=== PATIENT | female | born 1965 | race Caucasian/White ===

== ENCOUNTER → 2022-04-22 | Outpatient (CLI) | payer OTHER ==
--- NOTE | 2022-04-23 10:33 | MR ---
EXAMINATION TYPE: MR angio head wo con DATE OF EXAM: 04/22/2022 6:29 PM CLINICAL INDICATION:Female, 57 years old with history of R51.9,G89.29,Z82.49,R93.89; COMPARISON: Same day MRI brain Technical: Technical: 3-D [id number] Axial with MIP reconstruction was created on a separate work station. IV Contrast: None Findings: Motion artifact limits evaluation. Vertebral arteries: Dominant right vertebral artery. The left vertebral artery cervical portion is no t definitively visualized. The artery appears to reconstitute within the intracranial portion. Basilar artery: The basilar artery is intact. The basilar artery bifurcation is normal. Internal Carotid arteries: The cervical, petrous, cavernous and supraclinoid segments are normal. AMARI: Patent with no evidence of aneurysm. ACOM: Present without evidence of aneurysm. MCA: Patent with no evidence of aneurysm. CIRCULATION SALES REPRESENTATIVE: Patent with no evidence of aneurysm. PCOM: Hypoplastic bilaterally. IMPRESSION: 1. No evidence of aneurysm. 2. Motion artifact with poor visualization of the left vertebral artery in the cervical portion. It appears to reconstituted within the intracranial portion. This may be secondary to a diminutive nondo minant left vertebral artery versus occlusion. Consider CTA neck for further evaluation for patency of the left vertebral artery.
--- NOTE | 2022-04-23 11:48 | MR ---
EXAMINATION TYPE: MR brain wo con DATE OF EXAM: 04/22/2022 6:44 PM COMPARISON: MR angiography same day. CLINICAL INDICATION:Female, 57 years old with history of R51.9,G89.29,Z82.49,R93.89; TECHNIQUE: Multi planar, multi sequence imaging was performed through the brain including: T1, T2, In version recovery, Diffusion weighted imaging, and gradient echo imaging. No gadolinium was given. FINDINGS: The elizabeth-white junctions, ventricular system, and cisterns appear unremarkable. Scattered foci and c onfluent areas of of high T2 signal intensity are seen within the periventricular white matter. Midli ne structures show no abnormality. Diffusion-weighted imaging shows no evidence of restricted diffusi on. The susceptibility weighted images reveal areas of ground small areas of blooming artifact within the left basal ganglia right temporal lobe, left posterior frontal lobe and within the occipital lob e on the right which is gyriform shaped and appears along the cortex. The bone marrow signal is within normal limits. The paranasal sinuses and globes are unremarkable. IMPRESSION: 1. No evidence of intracranial mass or acute/subacute infarct. 2. Extensive nonspecific white matter changes, likely secondary to small vessel ischemic disease. 3. Low signal within the right occipital lobe along the cortex could represent calcification/minerali zation from prior injury. Correlate with CT brain. 4. Scattered microhemorrhages as described above.
== END | disposition home or self-care (01) ==
LOC: RADMRIMAIN 17:29
PROVIDERS: ATTEND Family Medicine
DX: R51.9 Headache, unspecified (principal); G89.29 Other chronic pain; R93.89 Abnormal findings on diagnostic imaging of other specified body structures; Z82.49 Family history of ischemic heart disease and other diseases of the circulatory system
CPT/HCPCS: 70544; 70551

== ENCOUNTER → 2022-04-28 | Outpatient (CLI) | payer OTHER ==
--- NOTE | 2022-04-29 08:15 | CT ---
EXAMINATION TYPE: CT chest wo con DATE OF EXAM: 04/28/2022 COMPARISON: No prior chest studies at this location. HISTORY: abnormal cxr CT DLP: 417.7 mGycm, Automated exposure control for dose reduction was used. CONTRAST: Performed injected with 0 mL of Isovue 300. TECHNIQUE: Axial images were obtained at 5 mm thick sections. Reconstructed images are reviewed on [employer] computer in the coronal plane. FINDINGS: Portion of the thyroid visualized is normal. There may be some mild emphysematous changes lateral anterior right apex. Some additional increased d ensity within the lung juarez and the posterior dependent mid lungs. Example images series 4 image 29 series 4 image 32 Scattered small lymph nodes are present. The ascending aorta diameter at the level of the main pulmo nary artery is 3.5 cm. The main pulmonary artery diameter at the bifurcation is 3.0 cm. Coronary art zee calcification is present. Limited CT sections are obtained through the upper abdomen. Abdomen is essentially unremarkable. IMPRESSIONS: 1. Scattered parenchymal changes could be related to emphysematous change or infection. Recommend fol low-up chest x-ray 3 months. If there is interval change, repeat CT could be performed.
== END | disposition home or self-care (01) ==
LOC: RADCTMAIN 14:55
PROVIDERS: ATTEND Family Medicine
DX: J98.4 Other disorders of lung (principal); R93.89 Abnormal findings on diagnostic imaging of other specified body structures; Z82.49 Family history of ischemic heart disease and other diseases of the circulatory system
CPT/HCPCS: 71250

== ENCOUNTER → 2022-06-12 | Outpatient (CLI) | payer OTHER ==
--- NOTE | 2022-06-12 15:50 | CT ---
EXAMINATION TYPE: CT brain w con DATE OF EXAM: 06/12/2022 COMPARISON: MRI brain April 22, 2022 HISTORY: abnormal MRI results and Migraines for years. CT DLP: 1162.80 mGycm Automated exposure control for dose reduction was used. CONTRAST: CT scan of the head is performed with IV Contrast, patient injected with 80 mL of Isovue 370. FINDINGS: There is no abnormal enhancing mass or midline shift identified. Ventricles and sulci within normal l imits in size for patient's age. Severe low-attenuation in the deep and periventricular white matter is redemonstrated correlating with recent MRI. No abnormal enhancing masses are seen. Empty sella mor phology redemonstrated on sagittal images. There is partial opacification and mucosal thickening in t he posterior left ethmoid sinuses on current study. The globes are intact bilaterally. IMPRESSION: Severe nonspecific white matter changes redemonstrated. No abnormal enhancement or enhanc ing masses are noted. New posterior left ethmoid sinus disease seen. Correlate clinically..
--- NOTE | 2022-06-12 16:13 | CT ---
EXAMINATION TYPE: CT angio neck DATE OF EXAM: 06/12/2022 HISTORY: abnormal MRI results and Migraines for years. Abnormal findings on other imaging. COMPARISON: None CT DLP: 866.0 mGycm. Automated Exposure Control for Dose Reduction was Utilized. TECHNIQUE: CTA scan of the head and neck is performed without and with IV Contrast, patient injected with 80 mL of Isovue 370, axial images are obtained, coronal and sagittal reformatted images are rev iewed. 3D reconstructed images are created on an independent workstation and reviewed. FINDINGS: Carotid/Vascular Structures: Mild to moderate peripheral plaque in the arch extends into 3 great bran ch vessels without significant stenosis . More prominent plaque in the left subclavian artery with li near hypodensities suggesting chronic focal dissection axial images 33 through 35. No significant rocael nosis in common carotid arteries bilaterally. Moderate mixed plaque in the right carotid bulb extends into the proximal internal carotid artery without incident stenosis. There is [id number] mixed plaque in the proximal internal carotid artery without significant stenosis. Patent external carotid arteries without significant stenosis. Moderate calcified plaque in the distal internal carotid lupe grzegorz. Other: Tiny thin-walled cysts and mild scarring in the periphery of the lungs greater in the right up per lung is seen. Mild to moderate disc space narrowing C5-C6 and C6-C7 levels is present. IMPRESSION: No significant stenosis in the common or internal carotid arteries bilaterally. 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 Advise vascular surgical evaluation. NASCET criteria was used in interpretation of this exam?
== END | disposition home or self-care (01) ==
LOC: RADCTMAIN 14:56
PROVIDERS: ATTEND Family Medicine
DX: J34.89 Other specified disorders of nose and nasal sinuses (principal); G93.89 Other specified disorders of brain
CPT/HCPCS: 70460; 70498; Q9967

== ENCOUNTER 2022-08-16 05:45 | Inpatient (IN) | payer OTHER ==
[2022-08-16] MEDS ORDERED: ASPIRIN 81 MG PO STA (06:02)
[2022-08-16] MEDS ORDERED: HEPARIN SODIUM 1,000 UN/ML (10ML VL) IV ONE (06:02)
[2022-08-16] MEDS ORDERED: NALOXONE 0.4 MG/ML 1 ML VIAL IV PRN (06:05)
--- NOTE | 2022-08-16 06:05 | ED ---
General Adult HPI - General Chief complaint: Chest Pain Stated complaint: chest pain Time Seen by Provider: 08/16/22 05:56 Source: patient, family Mode of arrival: wheelchair Limitations: no limitations - History of Present Illness Initial comments: Dictation was produced using [employer] dictation software. please excuse any grammatical, word or spelling errors. Chief Complaint: 57-year-old female presents emergency department for chest pain History of Present Illness: 57-year-old male presents emergency department for chest pain. Patient states it is pressure-like sensation. Daughter at the bedside states that she's been having chest pressure for the last 2-3 days. Over the last 12 hours states that her chest pains were getting worse associated with diaphoresis and nausea. Pain radiates down her left upper extremity. Patient denies any cardiac history. She does have a history of diabetes, hypertension and dyslipidemia. The ROS documented in this emergency department record has been reviewed and confirmed by me. Those systems with pertinent positive or negative responses have been documented in the HPI. All other systems are other negative and/or noncontributory. PHYSICAL EXAM: General Impression: Alert and oriented x3, acute distress secondary to pain HEENT: Normocephalic atraumatic, extra-ocular movements intact, pupils equal and reactive to light bilaterally, mucous membranes moist, no JVD Cardiovascular: Heart regular rate and rhythm Chest: Able to complete full sentences, no retractions, no tachypnea, mild lung wheezing Abdomen: abdomen soft, non-tender, non-distended, no organomegaly Musculoskeletal: Pulses present and equal in all extremities, no peripheral edema Motor: no focal deficits noted Neurological: CN II-XII grossly intact, no focal motor or sensory deficits noted Skin: Intact with no visualized rashes Psych: Normal affect and mood ED course:-year-old feel presents emergency department with chest pain concerning for acute coronary syndrome. Vital signs upon arrival shows blood pressure to 80/110, rest of vital signs within acceptable limits. EKG shows ST segment elevation UT with ST elevations in inferior leads and reciprocal changes in high lateral and anterior precordial leads. Code STEMI paged. Nursing notes and chart review was performed EKG interpreted by me: Ventricular rate S1, sinus rhythm,. 197, QRS 15, QTc 440. No MD prolongation, no QTC prolongation. ST elevations in inferior leads with reciprocal changes in the high lateral leads and anterior precordial leads Was pt. sent in by a medical professional or institution ([facility], STANDARDS ANALYST, urgent care, hospital, or half-way...) When possible be specific @ -No Did you speak to anyone other than the patient for history (EMS, parent, family, police, friend...)? What history was obtained from this source @ -Family member at the bedside Did you review nursing and triage notes (agree or disagree)? Why? @ -I reviewed and agree with nursing and triage notes Were old charts reviewed (outside hosp., previous admission, EMS record, old EKG, old radiological studies, urgent care reports/EKG's, half-way records)? Report findings @ -No old charts were reviewed Differential Diagnosis (chest pain, altered mental status, abdominal pain women, abdominal pain men, vaginal bleeding, musculoskeletal, weakness, fever, dyspnea, syncope, headache, dizziness, GI bleed, back pain, seizure, CVA, palpatations, mental health)? @ -Differential chest pain EKG interpreted by me (3pts min.). @ -As above X-rays interpreted by me (1pt min.). @ -No acute processes CT interpreted by me (1pt min.). @ -None done U/S interpreted by me (1pt. min.). @ -None done What testing was considered but not performed or refused? (CT, X-rays, U/S, labs)? Why? @ -None What meds were considered but not given or refused? Why? @ -None Did you discuss the management of the patient with other professionals (professionals i.e. [facility], STANDARDS ANALYST, lab, RT, psych nurse, social service assistant, clay shop supervisor, teacher, wildlife conservation officer, case briefer)? Give summary @ -No Was smoking cessation discussed for >3mins.? @ -No Was critical care preformed (if so, how long)? @ -Yes, 33 minutes Were there social determinants of health that impacted care today? How? (Homelessness, low income, unemployed, alcoholism, drug addiction, transportation, low edu. Level, literacy, decrease access to med. care, shelter, rehab)? @ -No Was there de-escalation of care discussed even if they declined (Discuss DNR or withdrawal of care, Hospice)? DNR status @ -No What co-morbidities impacted this encounter? (DM, HTN, Smoking, COPD, CAD, Cancer, CVA, ARF, Chemo, Hep., AIDS, mental health diagnosis, sleep apnea, morbid obesity)? @ -None Was patient admitted / discharged? Hospital course, mention meds given and route, prescriptions, significant lab abnormalities, going to OR and other per tinent info. @ -57-year-old female presents emergency department with chest pain concerning for acute coronary syndrome. EKG shows ST segment elevation UT. Code STEMI was paged. Case discussed with inside sales associate. Patient will be disposition emergently to the medical laboratory technologist for stat cardiac catheterization Undiagnosed new problem with uncertain prognosis? @ -No Drug Therapy requiring intensive monitoring for toxicity (Heparin, Nitro, Insulin, Cardizem)? @ -No Were any procedures done? @ -No Diagnosis/symptom? Acute, or Chronic, or Acute on Chronic? Uncomplicated (without systemic symptoms) or Complicated (systemic symptoms)? @ -1. Acute ST segment elevation UT Side effects of treatment? @ -No Exacerbation, Progression, or Severe Exacerbation? @ -No Poses a threat to life or bodily function? How? (Chest pain, USA, UT, pneumonia, PE, COPD, DKA, ARF, appy, cholecystitis, CVA, Diverticulitis, Homicidal, Suicidal, threat to staff... and all critical care pts) @ -yes - Related Data Allergies Allergy/AdvReac Type Severity Reaction Status Date / Time aspirin AdvReac Nausea & Verified 08/16/22 05:46 Vomiting Review of Systems ROS Statement: Those systems with pertinent positive or pertinent negative responses have been documented in the HPI. ROS Other: All systems not noted in ROS Statement are negative. Past Medical History Past Medical History: Hyperlipidemia, Hypertension History of Any Multi-Drug Resistant Organisms: None Reported Past Surgical History: Section, Hysterectomy Past Psychological History: No Psychological Hx Reported Smoking Status: Current every day smoker Past Alcohol Use History: Occasional Past Drug Use History: Marijuana General Exam Limitations: no limitations Course Vital Signs 08/16/22 05:47 Temperature 98 F Pulse Rate 61 Respiratory 18 Rate Blood Pressure 208/110 O2 Sat by Pulse 98 Oximetry Disposition Clinical Impression: ST elevation myocardial infarction (STEMI) Disposition: ADMITTED IP TO THIS HOSP Condition: Critical Referrals: Juanis Cardenas MD [Primary Care Provider] - 1-2 days Decision Time: 06:10
[2022-08-16] MEDS ORDERED: NITROGLYCERIN SL TABS 0.4 MG TAB SUBLINGUAL STA (06:14)
[2022-08-16] MEDS ORDERED: SODIUM CHLORIDE 0.9% 1,000 ML IV SCH (06:15)
[2022-08-16] MEDS ORDERED: HEPARIN SOD,PORK IN 0.45% NACL 25,000 UNIT in 0.45% NACL 1 250ML.BAG IV SCH (06:15)
[2022-08-16] MEDS ORDERED: VERAPAMIL 2.5 MG/ML 2 ML AMP ONE (06:31)
[2022-08-16] MEDS ORDERED: HEPARIN SODIUM 1,000 UN/ML (10ML VL) ONE (06:31)
[2022-08-16] MEDS ORDERED: fentaNYL (PF) 50 MCG/ML 2 ML AMP ONE (06:38)
--- NOTE | 2022-08-16 06:40 | P.CRDCN ---
History of Present Illness History of present illness: HISTORY OF PRESENTING ILLNESS Patient is a pleasant 57-year-old female with history of hypertension, hyperlipidemia, tobacco abuse, family history of CAD who presents for chest pain. Patient has been having off-and-on chest pain or last 3-4 days. Chest pain associated with diaphoresis and nausea. Has some pain down her left arm. Has a history of borderline diabetes however taken off medications after she lost significant weight. She does have family history of father f rom massive VT. She does not have inferior ST elevations and oil laboratory analyst was activated. REVIEW OF SYSTEMS At the time of my exam: CONSTITUTIONAL: Denies fever or chills. CARDIOVASCULAR: +chest pain, no shortness of breath, orthopnea, PND or palpitations. RESPIRATORY: Denies cough. GASTROINTESTINAL: Denies abdominal pain, diarrhea, constipation, nausea or vomiting. MUSCULOSKELETAL: Denies myalgias. NEUROLOGIC: Denies numbness, tingling or weakness. ENDOCRINE: Denies fatigue, weight change, polydipsia or polyurina. GENITOURINARY: Denies burning, hematuria or urgency with micturation. HEMATOLOGIC: Denies history of anemia or bleeding. PHYSICAL EXAMINATION Vital signs reviewed. CONSTITUTIONAL: No apparent distress. HEENT: Head is normocephalic. Pupils are equal, round. Sclerae anicteric. Mucous membranes of the mouth are moist. No JVD. No carotid bruit. CHEST EXAMINATION: Lungs are clear to auscultation. No chest wall tenderness is noted on palpation or with deep breathing. HEART EXAMINATION: Regular rate and rhythm. S1, S2 heard. No murmurs, gallops or rub. ABDOMEN: Soft, nontender. Positive bowel sounds. EXTREMITIES: 2+ peripheral pulses, no lower extremity edema and no calf te nderness. NEUROLOGIC EXAMINATION: Patient is awake, alert and oriented x3. ASSESSMENT 1. Inferior STEMI 2. Hypertension, elevated on presentation 3. Hyperlipidemia 4. Tobacco abuse 5. Family history of CAD PLAN Patient with ST elevation and symptoms over last few days. Discussed recommendations for heart catheterization and PCI and patient agreeable. Check 2-D echo. Aspirin, heparin. Further recommendations to follow. Past Medical History Past Medical History: Hyperlipidemia, Hypertension History of Any Multi-Drug Resistant Organisms: None Reported Past Surgical History: Section, Hysterectomy Past Psychological History: No Psychological Hx Reported Smoking Status: Current every day smoker Past Alcohol Use History: Occasional Past Drug Use History: Marijuana Medications and Allergies Allergies Allergy/AdvReac Type Severity Reaction Status Date / Time aspirin AdvReac Nausea & Verified 08/16/22 05:46 Vomiting Physical Exam Vitals: Vital Signs Temp Pulse Resp BP Pulse Ox 08/16/22 06:23 56 L 15 217/99 100 08/16/22 06:15 55 L 16 234/94 98 08/16/22 05:47 98 F 61 18 208/110 98 Intake and Output 08/15/22 08/15/22 08/16/22 14:59 22:59 06:59 Other: Weight 74.843 kg Results Current Medications Generic Name Dose Route Start Last Admin Trade Name Freq PRN Reason Stop Dose Admin Heparin Sodium/Sodium Chloride 250 mls @ 8.981 mls/hr 08/16/22 06:15 25,000 unit/ Sodium Chloride IV .Q24H ZACK Protocol 12 UNITS/KG/HR Sodium Chloride 1,000 mls @ 110 mls/hr 08/16/22 06:15 08/16/22 06:14 Saline 0.9% IV 110 mls/hr .Q9H6M ZACK Administration Naloxone HCl 0.2 mg 08/16/22 06:05 Naloxone 0.4 Mg/Ml 1 Ml Vial IV Q2M PRN Opioid Reversal Intake and Output 08/15/22 08/15/22 08/16/22 14:59 22:59 06:59 Other: Weight 74.843 kg Patient Weight 08/16/22 06:59 Weight 74.843 kg
[2022-08-16 06:43] LABS: Basophils # (A) 0.1 k/uL (0-0.2); Basophils % (A) 1 %; Eosinophils # (A) 0.2 k/uL (0-0.7); Eosinophils % (A) 1 %; HCT 47.4 % (34.0-46.0); HGB 16.4 gm/dL (11.4-16.0); Lymphocytes # (A) 2.6 k/uL (1.0-4.8); Lymphocytes % (A) 18 %; MCH 31.9 pg (25.0-35.0); MCHC 34.7 g/dL (31.0-37.0); MCV 91.9 fL (80.0-100.0); Mean Platelet Volume 8.8; Monocytes # (A) 0.6 k/uL (0-1.0); Monocytes % (A) 4 %; Neutrophils # (A) 10.5 k/uL (1.3-7.7); Neutrophils % (A) 74 %; Platelet Count 219 k/uL (150-450); RBC 5.15 m/uL (3.80-5.40); RDW 12.9 % (11.5-15.5); WBC 14.3 k/uL (3.8-10.6)
[2022-08-16] MEDS ORDERED: fentaNYL (PF) 50 MCG/ML 2 ML AMP IVP ONE ×2 (06:43)
[2022-08-16] MEDS ORDERED: MIDAZOLAM 2 MG/2 ML VIAL IVP ONE (06:43)
[2022-08-16] MEDS ORDERED: LIDOCAINE 1% INJ 10MG/ML (5 ML VIAL-PF) SQ ONE (06:44)
[2022-08-16] MEDS ORDERED: VERAPAMIL SYRINGE (5 MG/10 ML) INTRAARTER ONE (06:45)
[2022-08-16 06:51] LABS: INR 0.9 (<1.2); Partial Thromboplastin Time 23.2 sec (22.0-30.0); Prothrombin Time 9.8 sec (9.0-12.0)
[2022-08-16] MEDS: NITROGLYCERIN 1000MCG/10ML SYRINGE INTRAARTER ONE ×3 (06:55→07:00)
[2022-08-16] MEDS: HEPARIN SODIUM 1,000 UN/ML (10ML VL) IVP ONE ×3 (06:55→07:17)
[2022-08-16] MEDS ORDERED: SODIUM CHLORIDE 0.9% 1,000 ML IV ONE (07:00)
[2022-08-16] MEDS ORDERED: IOPAMIDOL-370 125ML BTL INJ ONE ×2 (07:11)
[2022-08-16] MEDS ORDERED: TICAGRELOR 90 MG TAB PO ONE (07:18)
[2022-08-16] MEDS ORDERED: TICAGRELOR 90 MG TAB ONE (07:19)
[2022-08-16] MEDS ORDERED: ATROPINE SULFATE 0.1 MG/ML 10ML SYRINGE IV PRN (07:20)
[2022-08-16] MEDS ORDERED: RX INFO: IV CONTRAST WAS GIVEN 1 EACH MISC MISCELLANE PRN (07:20)
[2022-08-16] MEDS ORDERED: NITROGLYCERIN SL TABS 0.4 MG TAB SUBLINGUAL PRN (07:20)
[2022-08-16] MEDS ORDERED: MAG HYDROX/AL HYDROX/SIMETH 30 ML CUP PO PRN (07:20)
--- NOTE | 2022-08-16 07:20 | P.PRCINT ---
Percutaneous Coronary Int. - Percutaneous Coronary Intervention Percutaneous Coronary Intervention: PROCEDURES PERFORMED: Left heart catheterization, bilateral coronary angiography, PCI PLV with a 2.5 x 18 mm Xience IDA INDICATION: Inferior STEMI CONSENT:I have discussed the risks, benefits and alternative therapies for the above-mentioned procedure and for both sedation/analgesia as well as necessary blood product administration, if indicated, as they pertain to this patient. The patient has indicated understanding and acceptance of the risks and procedures discussed. PROCEDURE: After the risks, benefits and alternatives of the above mentioned procedure explained in detail with the patient, informed consent was obtained. Patient was taken to the catheterization lab and prepped and draped in usual fashion. 1% lidocaine was used to anesthetize the right radial artery. A 6- [place] sheath was placed in the right radial artery using modified Seldinger technique. A 6-[place] AL 0.75 guide was used to engage the RCA. The decision was made to perform PCI of the PLV branch. A 0.014 BMW wire was advanced into the distal PLV. Predilation was performed with a 2.5 x 12 mm balloon. Next a 2.5 x 18 mm Xience IDA was placed in the proximal PLV. The wire was pulled and final angiograms were performed. Pre-intervention there is 99% stenosis and EMERY 2 flow and postintervention there was 0% stenosis and EMERY-3 flow. Left coronary angiography was performed with a 5-[place] JL 3.5 catheter. A 5-[place] FL3.5 catheter was inserted into the left ventricle and pressure measurements were obtained. The right radial sheath was removed and a TR band was placed with hemostasis achieved. The patient tolerated the procedure well. Patient was transported back to the post catheterization holding area in stable condition. Conscious Sedation: Patient was monitored under the direct supervision of vision of myself for conscious sedation using Versed and fentanyl for a total duration of [] minutes HEMODYNAMICS: Aorta: 167/72 LV: 125/8, LVEDP 27 SELECTIVE CORONARY ARTERIOGRAPHY: LEFT MAIN: The left main is a large caliber vessel which bifurcates into the LAD and circumflex. There is no significant stenosis. LEFT ANTERIOR DESCENDING CORONARY ARTERY: LAD is a large caliber vessel which wraps around to the apex. There are mild luminal irregularities 10-20% of the proximal and mid LAD. LEFT CIRCUMFLEX CORONARY ARTERY: Left circumflex is a moderate caliber vessel mild luminal irregularities and OM1 is small to moderate caliber with 90% mid stenosis. RIGHT CORONARY ARTERY: The right coronary artery is a large caliber vessel which gives off a PDA and PLV branch and is the dominant vessel. There is diffuse proximal 20-30% RCA stenosis. Otherwise mild luminal irregularities. PLV has a 99% stenosis. FINAL IMPRESSION: 1. CAD as described above including 99% PLV stenosis and 90% OM1 stenosis and otherwise mild luminal irregularities. 2. S/p PCI PLV with a 2.5 x 18 mm Xience IDA 3. Elevated left sided filling pressures PLAN: 1. Aggressive risk factor modification per most recent ACC/AHA guidelines. 2. Continue dual antiplatelets with aspirin and Brillinta for 12 months. 3. Staged PCI of OM1
--- NOTE | 2022-08-16 07:26 | XR ---
EXAMINATION TYPE: XR chest 1V portable DATE OF EXAM: 08/16/2022 Comparison: CT 04/20/2022 Clinical History: 57-year-old female chest pain Findings: Patient is rotated toward the left altering the normal cardiac mediastinal contours. Further limitati on due to portable technique, large body habitus, and the centered exam. Unable to exclude mild inter stitial opacities right upper lobe and subtly within the lower lung on a background of emphysematous change. Heart appearance borderline enlarged. Impression: Limited portable exam. Background COPD. Unable to exclude developing interstitial and patchy opacitie s developing in the right upper lobe. Correlate for CHF or pneumonia as possible etiologies.
[2022-08-16] MEDS: SODIUM CHLORIDE 0.9% 1,000 ML in EMPTY BAG 1 BAG IV SCH (07:35)
[2022-08-16 07:40] LABS: Glucose,Whole Blood 154 mg/dL (70-110)
[2022-08-16 08:39] LABS: ALT 52 U/L (4-34); AST 276 U/L (14-36); African American GFR (CKD) >90 (>60 ml/min/1.73 sqM); Albumin 3.8 g/dL (3.5-5.0); Alkaline Phosphatase 113 U/L (38-126); Anion Gap 6 mmol/L; Blood Urea Nitrogen 18 mg/dL (7-17); Calcium 8.3 mg/dL (8.4-10.2); Carbon Dioxide 26 mmol/L (22-30); Chloride 106 mmol/L (98-107); Glucose 152 mg/dL (74-99); Non-African American GFR(CKD) >90 (>60 ml/min/1.73 sqM); Potassium 3.6 mmol/L (3.5-5.1); Sodium 138 mmol/L (137-145); Total Bilirubin 0.3 mg/dL (0.2-1.3); Total Protein 6.6 g/dL (6.3-8.2)
[2022-08-16] MEDS ORDERED: METOPROLOL TARTRATE 25 MG TAB PO SCH (09:00)
[2022-08-16 09:23] VITALS: BMI 29.2
[2022-08-16] MEDS ORDERED: Potassium Replacement Protocol 1 EACH MISC MISCELLANE PRN ×2 (09:27→09:29)
[2022-08-16] MEDS: PANTOPRAZOLE 40 MG TABLET PO SCH (09:40)
[2022-08-16] MEDS ORDERED: POTASSIUM CHLORIDE ER 20 MEQ TAB.ER PO SCH (10:00)
[2022-08-16 10:33] LABS: Magnesium 1.9 mg/dL (1.6-2.3)
[2022-08-16 11:15] LABS: Glucose,Whole Blood 134 mg/dL (70-110)
--- NOTE | 2022-08-16 12:51 | CA ---
Transthoracic Echo Report Name: Carmen Simpson Age: 57 Gender: F : 1965 Exam Date: 08/16/2022 09:33 Exam Location: [facility] Ht (in): 63 Wt (lb): 165 Ordering Physician: Severo Newby DO ([email or web address]) Attending/Referring Phys: Intern Brand Baldo Castillo RDCS Procedure CPT: Indications: stemi Cardiac Hx: COPD; Chr. bronchitis; Pulm Emphysema; HTN; CP; Borderline DM. Technical Quality: Fair Contrast 1: Total Dose (mL): Contrast 2: Total Dose (mL): MEASUREMENTS (Male / Female) Normal Values 2D ECHO LV Diastolic Diameter PLAX 4.2 cm 4.2 - 5.9 / 3.9 - 5.3 cm LV Systolic Diameter PLAX 3.3 cm IVS Diastolic Thickness 1.4 cm 0.6 - 1.0 / 0.6 - 0.9 cm LVPW Diastolic Thickness 1.6 cm 0.6 - 1.0 / 0.6 - 0.9 cm LV Relative Wall Thickness 0.7 LVOT Diameter 2.0 cm LA Systolic Diameter LX 3.6 cm 3.0 - 4.0 / 2.7 - 3.8 cm LV Diastolic Volume MOD BP 87.6 cm??? 67 - 155 / 56 - 104 cm??? LV Systolic Volume MOD BP 31.4 cm??? 22 - 58 / 19 - 49 cm??? LV Ejection Fraction MOD BP 64.2 % >= 55 % LV Diastolic Volume MOD 4C 78.9 cm??? LV Systolic Volume MOD 4C 27.1 cm??? LV Ejection Fraction MOD 4C 65.7 % LV Diastolic Length 4C 7.8 cm LV Systolic Length 4C 5.9 cm LV Diastolic Volume MOD 2C 95.7 cm??? LV Systolic Volume MOD 2C 34.9 cm??? LV Ejection Fraction MOD 2C 63.5 % LV Diastolic Length 2C 7.7 cm LV Systolic Length 2C 6.3 cm Ascending Aorta Diameter 2.1 cm M-MODE RV Diastolic Diameter MM 3.3 cm Aortic Root Diameter MM 2.6 cm LA Systolic Diameter MM 3.5 cm LA Ao Ratio MM 1.3 MV E Point Septal Separation 1.9 cm AV Cusp Separation MM 1.4 cm DOPPLER AV Peak Velocity 148.7 cm/s AV Peak Gradient 8.8 mmHg MV Peak Velocity 109.0 cm/s MV Peak Gradient 4.8 mmHg MV Mean Velocity 69.4 cm/s MV Mean Gradient 2.2 mmHg MV Velocity Time Integral 43.7 cm MR Peak Velocity 605.3 cm/s MR Peak Gradient 146.6 mmHg Mitral E Point Velocity 86.9 cm/s Mitral A Point Velocity 99.8 cm/s Mitral E to A Ratio 0.9 MV Deceleration Time 249.4 ms MV E' Velocity 4.5 cm/s Mitral E to MV E' Ratio 19.4 TR Peak Velocity 264.9 cm/s TR Peak Gradient 28.1 mmHg Right Ventricular Systolic Press 33.1 mmHg PV Peak Velocity 108.5 cm/s PV Peak Gradient 4.7 mmHg FINDINGS Left Ventricle Left ventricular ejection fraction is estimated at 55-60 %. Moderate concentric left ventricular hypertrophy. Grade 1 diastolic dysfunction. Right Ventricle Right ventricular systolic pressure - 33 mm Hg. Right Atrium Mild right atrial dilatation. Left Atrium Mild left atrial dilatation. Mitral Valve Moderate thickening/calcification of the anterior mitral valve leaflet. Moderate thickening/calcification of the posterior mitral valve leaflet. Moderate mitral annular calcification. Minimal mitral stenosis. Mild mitral regurgitation. Aortic Valve Trileaflet aortic valve. Diffuse thickening (sclerosis) of the aortic valve cusps without reduced excursion. Tricuspid Valve Mild tricuspid regurgitation. Pulmonic Valve Mild pulmonic regurgitation. Pericardium Normal pericardium. Minimal Pleural effusion. Aorta Normal size aortic root and proximal ascending aorta. CONCLUSIONS Left ventricular ejection fraction 55-60%. Mild inferolateral hypokinesis RVSP 33 Mild left and right atrial dilation Moderate mitral annular calcification Mild mitral regurgitation No pericardial effusion Previewed by: Dr. Severo Newby DO (Electronically Signed) Final Date: 16 August 2022 12:51
[2022-08-16] MEDS ORDERED: Magnesium Replacement Protocol 1 EACH MISC MISCELLANE PRN (16:54)
[2022-08-16] MEDS ORDERED: MAGNESIUM SULFATE-D5W PMX 1 GM in DEXTROSE/WATER 1 100ML.BAG IVPB ONE (16:54)
--- NOTE | 2022-08-16 18:39 | P.HPIM ---
History of Present Illness H&P Date: 08/16/22 Chief Complaint: Chest pain 57-year-old female with history of hypertension, hyperlipidemia, tobacco abuse, family history of CAD who presents for chest pain. Patient has been having off-and-on chest pain or last 3-4 days. Chest pain associated with diaphoresis and nausea. Has some pain down her left arm. Has a history of borderline diabetes however taken off medications after she lost significant weight. She does have family history of father from massive [place]. 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 Patient underwent cardiac catheterization which revealed CAD including 99% PLV stenosis and 90% OM1 stenosis; patient is status post PCI to PLV with IDA; continue with DuoNeb antiplatelet therapy with aspirin and Brillinta for 12 months - Cardiology planning staged PCI of OM1 Review of Systems REVIEW OF SYSTEMS: CONSTITUTIONAL: No fever, no malaise, no fatigue. HEENT: No recent visual problems or hearing problems. Denied any sore throat. CARDIOVASCULAR: No chest pain, orthopnea, PND, no palpitations, no syncope. PULMONARY: No shortness of breath, no cough, no hemoptysis. GASTROINTESTINAL: No diarrhea, no nausea, no vomiting, no abdominal pain. NEUROLOGICAL: No headaches, no weakness, no numbness. HEMATOLOGICAL: Denies any bleeding or petechiae. GENITOURINARY: Denies any burning micturition, frequency, or urgency. MUSCULOSKELETAL/RHEUMATOLOGICAL: Denies any joint pain, swelling, or any muscle pain. ENDOCRINE: Denies any polyuria or polydipsia. The rest of the 14-point review of systems is negative. Past Medical History Past Medical History: Hyperlipidemia, Hypertension History of Any Multi-Drug Resistant Organisms: None Reported Past Surgical History: Section, Hysterectomy Past Psychological History: No Psychological Hx Reported Smoking Status: Current every day smoker Past Alcohol Use History: Occasional Past Drug Use History: Marijuana - Past Family History Father Family Medical History: CVA/TIA, Hypertension Additional Family Medical History / Comment(s): Massive stroke, [place] resulting in Cardiac Arrest. Mother Additional Family Medical History / Comment(s): from brain aneurysm at the age of 28 Medications and Allergies Home Medications Medication Instructions Recorded Confirmed Type Atorvastatin [Lipitor] 20 mg PO HS 08/16/22 08/16/22 History Ergocalciferol [Vitamin D2 (1250 1,250 mcg PO MO 08/16/22 08/16/22 History Mcg = 34540 Iu)] amLODIPine [Norvasc] 5 mg PO DAILY 08/16/22 08/16/22 History Allergies Allergy/AdvReac Type Severity Reaction Status Date / Time aspirin AdvReac Nausea & Verified 08/16/22 10:35 Vomiting Physical Exam Vitals: Vital Signs Temp Pulse Resp BP Pulse Ox 08/16/22 06:44 52 L 16 178/88 98 08/16/22 06:23 56 L 15 217/99 100 08/16/22 06:15 55 L 16 234/94 98 08/16/22 05:47 98 F 61 18 208/110 98 Intake and Output 08/15/22 08/16/22 08/16/22 22:59 06:59 14:59 Intake Total 600 Balance 600 Intake: IV 600 Other: Weight 74.843 kg PHYSICAL EXAMINATION: GENERAL: The patient is alert and oriented x3, not in any acute distress. Well developed, well nourished. HEENT: Pupils are round and equally reacting to light. EOMI. No scleral icterus. No conjunctival pallor. Normocephalic, atraumatic. No pharyngeal erythema. No thyromegaly. CARDIOVASCULAR: S1 and S2 present. No murmurs, rubs, or gallops. PULMONARY: Chest is clear to auscultation, no wheezing or crackles. ABDOMEN: Soft, nontender, nondistended, normoactive bowel sounds. No palpable organomegaly. MUSCULOSKELETAL: No joint swelling or deformity. EXTREMITIES: No cyanosis, clubbing, or pedal edema. NEUROLOGICAL: Gross neurological examination did not reveal any focal deficits. SKIN: No rashes. Results CBC & Chem 7: 08/16/22 06:14 08/16/22 08:08 Labs: Abnormal Lab Results - Last 24 Hours (Table) 08/16/22 08/16/22 Range/Units 06:14 07:39 WBC 14.3 H (3.8-10.6) k/uL Hgb 16.4 H (11.4-16.0) gm/dL Hct 47.4 H (34.0-46.0) % Neutrophils # 10.5 H (1.3-7.7) k/uL POC Glucose (mg/dL) 154 H (70-110) mg/dL Thrombosis Risk Factor Assmnt - Choose All That Apply Any of the Below Risk Factors Present?: Yes Each Factor Represents 1 point: Abnormal pulmonary function (COPD), Acute [place], Age 41-60 years, Obesity (BMI >25) Other Risk Factors: No Other congenital or acquired thrombophilia - If yes, enter type in comment: No Thrombosis Risk Factor Assessment Total Risk Factor Score: 4 Thrombosis Risk Factor Assessment Level: Moderate Risk Assessment and Plan Assessment: 1. Inferior STEMI/Coronary artery disease; status post cardiac catheterization --99% PLV stenosis and 90% OM1 stenosis and otherwise mild luminal irregularities. --S/p PCI PLV with a 2.5 x 18 mm Xience IDA --Aggressive risk factor modification per most recent ACC/AHA guidelines. --Continue dual antiplatelets with aspirin and Brillinta for 12 months. --Staged PCI of OM1 2. Hypertension; Norvasc 5 mg daily; metoprolol 12.5 mg twice a day's added 3. Hyperlipidemia; Lipitor 20 mg by mouth daily at bedtime 4. Vitamin D deficiency; patient remains on 50,000 international units of vitamin D 2 weekly DVT prophylaxis; SCDs/systemic anticoagulation CODE STATUS; full code
[2022-08-16 19:54] LABS: Glucose,Whole Blood 130 mg/dL (70-110)
[2022-08-16] MEDS: METOPROLOL TARTRATE 12.5 MG TAB PO SCH (20:11)
[2022-08-16] MEDS: ATORVASTATIN 80 MG TAB PO SCH (20:11)
[2022-08-16] MEDS: TICAGRELOR 90 MG TAB PO SCH (20:11)
[2022-08-17] MEDS: SODIUM CHLORIDE 0.9% 1,000 ML in EMPTY BAG 1 BAG IV SCH ×2 (00:43→08:57)
[2022-08-17] MEDS: PANTOPRAZOLE 40 MG TABLET PO SCH (06:42)
[2022-08-17 07:33] LABS: ALT 58 U/L (4-34); AST 186 U/L (14-36); African American GFR (CKD) >90 (>60 ml/min/1.73 sqM); Albumin 3.3 g/dL (3.5-5.0); Alkaline Phosphatase 96 U/L (38-126); Anion Gap 2 mmol/L; Blood Urea Nitrogen 17 mg/dL (7-17); Calcium 8.6 mg/dL (8.4-10.2); Carbon Dioxide 27 mmol/L (22-30); Chloride 109 mmol/L (98-107); Glucose 120 mg/dL (74-99); Magnesium 2.1 mg/dL (1.6-2.3); Non-African American GFR(CKD) >90 (>60 ml/min/1.73 sqM); Potassium 4.3 mmol/L (3.5-5.1); Sodium 138 mmol/L (137-145); Total Bilirubin 0.5 mg/dL (0.2-1.3); Total Protein 5.8 g/dL (6.3-8.2)
[2022-08-17 07:55] LABS: Basophils # (A) 0.1 k/uL (0-0.2); Basophils % (A) 1 %; Eosinophils # (A) 0.1 k/uL (0-0.7); Eosinophils % (A) 1 %; HCT 40.1 % (34.0-46.0); HGB 13.8 gm/dL (11.4-16.0); Lymphocytes # (A) 2.4 k/uL (1.0-4.8); Lymphocytes % (A) 21 %; MCH 31.8 pg (25.0-35.0); MCHC 34.4 g/dL (31.0-37.0); MCV 92.4 fL (80.0-100.0); Mean Platelet Volume 8.5; Monocytes # (A) 0.6 k/uL (0-1.0); Monocytes % (A) 5 %; Neutrophils # (A) 8.1 k/uL (1.3-7.7); Neutrophils % (A) 70 %; Platelet Count 188 k/uL (150-450); RBC 4.34 m/uL (3.80-5.40); RDW 13.1 % (11.5-15.5); WBC 11.6 k/uL (3.8-10.6)
[2022-08-17] MEDS ORDERED: PNEUMOCOCCAL VACC-PREVNAR-20 0.5 ML SYR IM ONE (08:33)
[2022-08-17] MEDS: METOPROLOL TARTRATE 12.5 MG TAB PO SCH (08:44)
[2022-08-17] MEDS: ASPIRIN 81 MG PO SCH (09:39)
[2022-08-17] MEDS: TICAGRELOR 90 MG TAB PO SCH ×2 (09:39→20:14)
--- NOTE | 2022-08-17 10:41 | P.PN ---
Subjective HISTORY OF PRESENTING ILLNESS Patient is a pleasant 57-year-old female with history of hypertension, hyperlipidemia, tobacco abuse, family history of CAD who presents for chest pain. Patient has been having off-and-on chest pain or last 3-4 days. Chest pain associated with diaphoresis and nausea. Has some pain down her left arm. Has a history of borderline diabetes however taken off medications after she lost significant weight. She does have family history of father from massive [place]. She does not have inferior ST elevations and supervisor laboratory was activated. 08/17 Patient seen and examined. Patient had heart catheterization yesterday with PCI of PLV with a residual OM stenosis. Echocardiogram reviewed with the EF 55-60%. After stenting she denies any further chest pain. Troponin elevated up to 15. She has been bradycardic and unable to receive metoprolol with heart rates in the 30s to 40s however asymptomatic. Denies any prior history of bradycardia. PHYSICAL EXAMINATION Vital signs reviewed. CONSTITUTIONAL: No apparent distress. HEENT: Head is normocephalic. Pupils are equal, round. Sclerae anicteric. Mucous membranes of the mouth are moist. No JVD. No carotid bruit. CHEST EXAMINATION: Lungs are clear to auscultation. No chest wall tenderness is noted on palpation or with deep breathing. HEART EXAMINATION: Regular rate and rhythm. S1, S2 heard. No murmurs, gallops or rub. ABDOMEN: Soft, nontender. Positive bowel sounds. EXTREMITIES: 2+ peripheral pulses, no lower extremity edema and no calf tenderness. NEUROLOGIC EXAMINATION: Patient is awake, alert and oriented x3. ASSESSMENT 1. Inferior STEMI, s/p PCI PLV 08/16 2. Hypertension, elevated on presentation 3. Hyperlipidemia 4. Tobacco abuse 5. Family history of CAD 6. Asymptomatic bradycardia, unable to tolerate BBlocker 7. CAD with residual OM stenosis PLAN Echocardiogram showing preserved EF 55-60% without significant valvular disease. Continue with dual antiplatelets with aspirin and Brilinta and high intensity statin. Hold beta marcel given bradycardia. Add lisinopril for blood pressure control. Hopeful discharge home 08/18 with staged PCI of OM branch in the next 1-2 weeks. Tobacco cessation discussed. Objective - Vital Signs Vital signs: Vital Signs Temp 98.7 F 08/17/22 09:00 Pulse 42 L 08/17/22 10:00 Resp 17 08/17/22 10:00 BP 152/78 08/17/22 10:00 Pulse Ox 95 08/17/22 09:00 FiO2 Intake & Output 08/16/22 08/17/22 08/17/22 18:59 06:59 18:59 Intake Total 1360 540 780 Output Total 5200 550 Balance -3840 -10 780 Weight 74.843 kg 75.4 kg Intake: IV 1360 Invasive Line 1 30 Invasive Line 2 30 Magnesium Sulfate-D5w Pmx 100 1 gm In Dextrose/Water 1 100ml.bag @ 100 mls/hr IVPB ONCE ONE Rx#: [id number] Sodium Chloride 0.9% 1, 600 000 ml In Empty Bag 1 bag @ 1 ML/KG/HR 74.843 mls/ hr IV .[id number] ZACK Rx#: [id number] Oral 540 780 Output: Urine 5200 550 Emesis 0 Other: Voiding Method Toilet Toilet # Voids 0 0 # Bowel Movements 0 - Labs CBC & Chem 7: 08/17/22 06:39 08/17/22 06:39 Labs: Abnormal Lab Results - Last 24 Hours (Table) 08/16/22 08/16/22 08/16/22 Range/Units 06:14 11:14 19:53 WBC (3.8-10.6) k/uL Neutrophils # (1.3-7.7) k/uL Chloride (98-107) mmol/L Glucose (74-99) mg/dL POC Glucose (mg/dL) 134 H 130 H (70-110) mg/dL Hemoglobin A1c 6.5 H (0.0-6.0) % AST (14-36) U/L ALT (4-34) U/L Total Protein (6.3-8.2) g/dL Albumin (3.5-5.0) g/dL 08/17/22 08/17/22 Range/Units 06:39 06:39 WBC 11.6 H (3.8-10.6) k/uL Neutrophils # 8.1 H (1.3-7.7) k/uL Chloride 109 H (98-107) mmol/L Glucose 120 H (74-99) mg/dL POC Glucose (mg/dL) (70-110) mg/dL Hemoglobin A1c (0.0-6.0) % AST 186 H (14-36) U/L ALT 58 H (4-34) U/L Total Protein 5.8 L (6.3-8.2) g/dL Albumin 3.3 L (3.5-5.0) g/dL
[2022-08-17 11:01] LABS: Chol/HDL Ratio 3.32 Ratio; LDL Cholesterol,Calculated 44.6 mg/dL (0.0-131.0)
[2022-08-17] MEDS: lisinopriL 5 MG TAB PO SCH (11:32)
[2022-08-17 16:39] LABS: Glucose,Whole Blood 101 mg/dL (70-110)
[2022-08-17] MEDS: ATORVASTATIN 80 MG TAB PO SCH (20:14)
[2022-08-18] MEDS: TICAGRELOR 90 MG TAB PO SCH ×2 (08:28→20:05)
[2022-08-18] MEDS: ASPIRIN 81 MG PO SCH (08:28)
[2022-08-18] MEDS: lisinopriL 5 MG TAB PO SCH (08:28)
[2022-08-18] MEDS ORDERED: ACETAMINOPHEN TAB 325 MG TAB PO PRN (08:38)
[2022-08-18] MEDS: LIDOCAINE 5% PATCH TOPICAL SCH (09:03)
[2022-08-18 09:40] LABS: Basophils # (A) 0.1 k/uL (0-0.2); Basophils % (A) 1 %; Eosinophils # (A) 0.1 k/uL (0-0.7); Eosinophils % (A) 1 %; HCT 41.5 % (34.0-46.0); Lymphocytes # (A) 1.6 k/uL (1.0-4.8); Lymphocytes % (A) 19 %; MCH 31.4 pg (25.0-35.0); MCHC 33.8 g/dL (31.0-37.0); Mean Platelet Volume 8.3; Monocytes # (A) 0.4 k/uL (0-1.0); Monocytes % (A) 5 %; Neutrophils # (A) 6.5 k/uL (1.3-7.7); Neutrophils % (A) 74 %; Platelet Count 194 k/uL (150-450); RBC 4.46 m/uL (3.80-5.40); RDW 12.7 % (11.5-15.5); WBC 8.8 k/uL (3.8-10.6)
--- NOTE | 2022-08-18 10:03 | XR ---
EXAM TYPE: LUMBAR SPINE X RAY SERIES COMPARISON: NONE HISTORY: Pain TECHNIQUE: 3 views are submitted. FINDINGS: Alignment is anatomic. The pedicles are intact. The transverse processes are intact. There is no s pondylolysis or spondylolisthesis. Multilevel facet arthropathy. Most marked at L4-5 and L5-S1. Vasc ular calcification seen. Diffuse osteopenia. Mild degenerative disc disease L5-S1. IMPRESSION: 1. Facet arthropathy L4-5 and L5-S1 mild degenerative disc disease L5-S1..
[2022-08-18 10:24] LABS: African American GFR (CKD) >90 (>60 ml/min/1.73 sqM); Anion Gap 6 mmol/L; Blood Urea Nitrogen 15 mg/dL (7-17); Calcium 8.8 mg/dL (8.4-10.2); Carbon Dioxide 27 mmol/L (22-30); Chloride 107 mmol/L (98-107); Glucose 180 mg/dL (74-99); Non-African American GFR(CKD) >90 (>60 ml/min/1.73 sqM); Potassium 3.9 mmol/L (3.5-5.1); Sodium 140 mmol/L (137-145)
[2022-08-18] MEDS: HYDROcodone/APAP 5-325MG 1 EACH TAB PO PRN ×2 (11:39→17:31)
[2022-08-18] MEDS: PANTOPRAZOLE 40 MG TABLET PO SCH (11:39)
--- NOTE | 2022-08-18 11:47 | P.PN ---
Subjective Progress Note Date: 08/18/22 HISTORY OF PRESENT ILLNESS: Patient is a pleasant 57-year-old female with history of hypertension, hyperlipidemia, tobacco abuse, family history of CAD who presents for chest pain. Patient has been having off-and-on chest pain or last 3-4 days. Chest pain associated with diaphoresis and nausea. Has some pain down her left arm. Has a history of borderline diabetes however taken off medications after she lost significant weight. She does have family history of father from massive [place]. She does not have inferior ST elevations and laboratory associate was activated. 08/17 Patient seen and examined. Patient had heart catheterization yesterday with PCI of PLV with a residual OM stenosis. Echocardiogram reviewed with the EF 55-60%. After stenting she denies any further chest pain. Troponin elevated up to 15. She has been bradycardic and unable to receive metoprolol with heart rates in the 30s to 40s however asymptomatic. Denies any prior history of bradycardia. 08/18/2022 Patient examined this morning at the bedside. Patient denies chest pain or pressure. Denies SOB. Blood pressure elevated this morning secondary to back pain. Repeat BP with improvement. Telemetry reveals sinus bradycardia. PHYSICAL EXAM: VITAL SIGNS: Reviewed. GENERAL: Well-developed in no acute distress. NECK: Supple. No JVD or thyromegaly LUNGS: Respirations even and unlabored. Lungs essentially clear to auscultation bilaterally. HEART: Regular rate and rhythm. S1 and S2 heard. EXTREMITIES: Normal range of motion. No clubbing or cyanosis. Peripheral pulses intact. No lower extremity edema ASSESSMENT: 1. Inferior STEMI, s/p PCI PLV 08/16 2. Hypertension, elevated on presentation 3. Hyperlipidemia 4. Tobacco abuse 5. Family history of CAD 6. Asymptomatic bradycardia, unable to tolerate BBlocker 7. CAD with residual OM stenosis PLAN: Continue current cardiac medications No betablocker given bradycardia Staged PCI of OM in 1-2 weeks Stable for discharge home today from a cardiac standpoint Patient to follow up outpatient with Dr. Newby Nurse practitioner note has been reviewed by physician. Signing provider agrees with the documented findings, assessment, and plan of care. Objective - Vital Signs Vital signs: Vital Signs Temp 98.0 F 08/18/22 03:30 Pulse 48 L 08/18/22 03:30 Resp 14 08/18/22 03:30 BP 103/58 08/18/22 03:30 Pulse Ox 97 08/18/22 03:30 FiO2 Intake & Output 08/17/22 08/18/22 08/18/22 18:59 06:59 18:59 Intake Total 1280 240 Output Total 400 Balance 880 240 Intake: IV 10 Invasive Line 1 5 Invasive Line 2 5 Oral 1270 240 Output: Urine 400 Other: Voiding Method Toilet Toilet # Voids 1 - Labs CBC & Chem 7: 08/18/22 08:22 08/18/22 08:22 Labs: Abnormal Lab Results - Last 24 Hours (Table) 08/17/22 Range/Units 06:39 HDL Cholesterol 31.60 L (40.00-60.00) mg/dL
--- NOTE | 2022-08-18 13:09 | P.PN ---
Subjective 57-year-old female with history of hypertension, hyperlipidemia, tobacco abuse, family history of CAD who presents for chest pain. Patient has been having off-and-on chest pain or last 3-4 days. Chest pain associated with diaphoresis and nausea. Has some pain down her left arm. Has a history of borderline diabetes however taken off medications after she lost significant weight. She does have family history of father from massive [place]. 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 Patient underwent cardiac catheterization which revealed CAD including 99% PLV stenosis and 90% OM1 stenosis; patient is status post PCI to PLV with IDA; continue with DuoNeb antiplatelet therapy with aspirin and Brillinta for 12 months - Cardiology planning staged PCI of OM1 08/18/2022 Patient presents after with evidence of inferior STEMI status post PCI to OM1. This morning she was sitting in bed in distress, she denies any chest pain or dyspnea but she was complaining from significant low back pain about 8-9/10 in severity No associated weakness or numbness, she says she has chronic back pain but this is worse. Patient also denies any other respiratory symptoms. No dyspnea or coughing. No pleuritic chest pain about the patient's chest x-ray showing possible fullness in the right upper chest. Stable to x-ray of the lower back showing degenerative disease and facet atrophy with no spondylosis or spondylolisthesis. Given her symptoms we will monitor for another 24 hours Objective - Vital Signs Vital signs: Vital Signs Temp 98.2 F 08/18/22 08:00 Pulse 62 08/18/22 08:00 Resp 18 08/18/22 08:00 BP 207/87 08/18/22 08:00 Pulse Ox 98 08/18/22 08:00 FiO2 Intake & Output 08/17/22 08/18/22 08/18/22 18:59 06:59 18:59 Intake Total 1280 240 Output Total 400 Balance 880 240 Intake: IV 10 Invasive Line 1 5 Invasive Line 2 5 Oral 1270 240 Output: Urine 400 Other: Voiding Method Toilet Toilet Toilet # Voids 1 - Exam GENERAL: The patient is alert and oriented x3, not in any acute distress. Well developed, well nourished. HEENT: Pupils are round and equally reacting to light. EOMI. No scleral icterus. No conjunctival pallor. Normocephalic, atraumatic. No pharyngeal erythema. No thyromegaly. CARDIOVASCULAR: S1 and S2 present. No murmurs, rubs, or gallops. PULMONARY: Chest is clear to auscultation, no wheezing or crackles. ABDOMEN: Soft, nontender, nondistended, normoactive bowel sounds. No palpable organomegaly. MUSCULOSKELETAL: No joint swelling or deformity. EXTREMITIES: No cyanosis, clubbing, or pedal edema. NEUROLOGICAL: Gross neurological examination did not reveal any focal deficits. SKIN: No rashes. no petechiae. - Labs CBC & Chem 7: 08/18/22 08:22 08/18/22 08:22 Labs: Abnormal Lab Results - Last 24 Hours (Table) 08/18/22 Range/Units 08:22 Glucose 180 H (74-99) mg/dL Assessment and Plan Assessment: Inferior STEMI/Coronary artery disease; status post cardiac catheterization and PCI to OM-1 Right upper lobe was Acute and chronic lower back pain, most likely musculoskeletal. Hypertension Hyperlipidemia History of vitamin D Plan: Continue with current cardiac medication and aspirin and brilinta, Cardiovascular team has cleared the patient and we will keep monitoring the patient for today given her significant back pain and reassess tomorrow. Consult pulmonary for her abnormal chest x-ray for further recommendation. Labs and medication were reviewed.. Continue same treatment. Continue with symptomatic treatment. Resume home medication. Monitor labs and vitals. DVT and GI prophylaxis. Further recommendations as per clinical course of the patient DVT prophylaxis: Subcutaneous heparin GI Prophylaxis: Pepcid PT/OT: Pending Prognosis is guarded
--- NOTE | 2022-08-18 15:01 | P.GSCN ---
History of Present Illness History of present illness: 57-year-old white female patient was seen on consult for a left subclavian occlusive disease. Shital was supposed to see me in the office patient developed chest pain patient to had a coronary artery stent placed last week. Patient history of hypertension, hyperlipidemia, Personal history history of smoking no history of claudication or rest pain no history of TIA or embolus feebleness on examination neck is supple no bruit appreciated Chest is clear good and both lungs first and second heart sound present Abdomen soft nontender Femorals are 1+ palpable bilateral brachial radial and ulnar pulses are present CT of the chest showed chronic focal dissection no significant stenosis of the common carotid bilaterally there is no history of fall or dizziness and graft plan is patient is under care of cardiology patient had a coronary artery stent placement patient discharged we'll follow-up in the office at this point no intervention needed for 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 Shares home with oldest daughter and 16month old grandson (son of youngest daughter) who she takes care of uti -e.coli. Patient states she has sleep apena but no longer has cpap and hasn't worn it in 16+ years. Recently dx with CPOD and emphysemia. Family hx CAD- Dad from [place] with Cardiac Arrest. Patient archana smokes 2ppd, sometimes more and has been smoking since the age of 11. Patient also smokes marijuana stating she takes 2-3 puffs every few hours. Borderline dm. History of Any Multi-Drug Resistant Organisms: None Reported Past Surgical History: Section, Hysterectomy Additional Past Surgical History / Comment(s): section x2. 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 Past Anesthesia/Blood Transfusion Reactions: No Reported Reaction Past Psychological History: No Psychological Hx Reported Smoking Status: Current every day smoker Past Alcohol Use History: Occasional Past Drug Use History: Marijuana - Past Family History Father Family Medical History: CVA/TIA, Hypertension Additional Family Medical History / Comment(s): Massive stroke, [place] resulting in Cardiac Arrest. Mother Additional Family Medical History / Comment(s): from brain aneurysm at the age of 28 Medications and Allergies Home Medications Medication Instructions Recorded Confirmed Type Atorvastatin [Lipitor] 20 mg PO HS 08/16/22 08/16/22 History Ergocalciferol [Vitamin D2 (1250 1,250 mcg PO MO 08/16/22 08/16/22 History Mcg = 55899 Iu)] amLODIPine [Norvasc] 5 mg PO DAILY 08/16/22 08/16/22 History Allergies Allergy/AdvReac Type Severity Reaction Status Date / Time aspirin AdvReac Nausea & Verified 08/16/22 10:35 Vomiting Surgical - Exam Vital Signs Temp Pulse Resp BP Pulse Ox 98 F 61 18 208/110 98 08/16/22 05:47 08/16/22 05:47 08/16/22 05:47 08/16/22 05:47 08/16/22 05:47 Results - Labs 08/18/22 08:22 08/18/22 08:22 Abnormal Lab Results - Last 24 Hours (Table) 08/18/22 Range/Units 08:22 Glucose 180 H (74-99) mg/dL Diabetes panel 08/18/22 Range/Units 08:22 Sodium 140 (137-145) mmol/L Potassium 3.9 (3.5-5.1) mmol/L Chloride 107 (98-107) mmol/L Carbon Dioxide 27 (22-30) mmol/L BUN 15 (7-17) mg/dL Creatinine 0.73 (0.52-1.04) mg/dL Glucose 180 H (74-99) mg/dL Calcium 8.8 (8.4-10.2) mg/dL Calcium panel 08/18/22 Range/Units 08:22 Calcium 8.8 (8.4-10.2) mg/dL Pituitary panel 08/18/22 Range/Units 08:22 Sodium 140 (137-145) mmol/L Potassium 3.9 (3.5-5.1) mmol/L Chloride 107 (98-107) mmol/L Carbon Dioxide 27 (22-30) mmol/L BUN 15 (7-17) mg/dL Creatinine 0.73 (0.52-1.04) mg/dL Glucose 180 H (74-99) mg/dL Calcium 8.8 (8.4-10.2) mg/dL Adrenal panel 08/18/22 Range/Units 08:22 Sodium 140 (137-145) mmol/L Potassium 3.9 (3.5-5.1) mmol/L Chloride 107 (98-107) mmol/L Carbon Dioxide 27 (22-30) mmol/L BUN 15 (7-17) mg/dL Creatinine 0.73 (0.52-1.04) mg/dL Glucose 180 H (74-99) mg/dL Calcium 8.8 (8.4-10.2) mg/dL
--- NOTE | 2022-08-18 15:04 | P.CNPUL ---
History of Present Illness Consult date: 08/18/22 Requesting physician: Juanis Cardenas Reason for consult: abnormal CXR/CT Chief complaint: Abnormal chest x-ray/CAT scan. History of present illness: Pulmonary consult dated 08/18/2022. 57-year-old female who presented to the emergency department on August 16. The patient came in with chest pain. The patient presented with an ST segment elevation myocardial infarction. She does have a history of hypertension, hyperlipidemia, tobacco use, and a family history of CAD. She was seen by card iology and diagnosed with an inferior ST segment elevation myocardial infarction, and had a stent placed. Chest x-ray is suggestive of possible mild fluid overload/CHF, and also changes of COPD. In addition, she had a previous computed tomography scan done in April of last year, which showed an abnormality, but apparently was never followed up. The patient is not having any respiratory issues at this time. The patient is currently on room air. For that reason, I told her that her workup, would be as an outpatient. The previous CT was done 04/28/2022. It showed some enlarged lymph nodes, and enlarged pulmonary artery, and some scattered parenchymal changes, and a follow- up CT was recommended in 3 months. Her CBC from today was completely normal. Also her electrolyte profile was completely normal. Glucose 180. Her troponin on admission, was 15.1. Review of Systems REVIEW OF SYSTEMS: CONSTITUTIONAL: [Negative.] NEUROLOGIC: [ Negative.] HEENT: [ Negative.] CARDIAC: Chest pain. PULMONARY: [Negative.] GI: [Negative.] : [Negative.] RHEUMATOLOGIC: [ Negative.] IMMUNOLOGIC: [ Negative.] ENDOCRINE: [Negative. ] DERMATOLOGIC: [Negative.] Past Medical History Past Medical History: Hyperlipidemia, Hypertension Additional Past Medical History / Comment(s): Patient states she lives in a two story home and does not drive. Shares home with oldest daughter and 16month old grandson (son of youngest daughter) who she takes care of uti -e.coli. Patient states she has sleep apena but no longer has cpap and hasn't worn it in 16+ years. Recently dx with CPOD and emphysemia. Family hx CAD- Dad from [place] with Cardiac Arrest. Patient archana smokes 2ppd, sometimes more and has been smoking since the age of 11. Patient also smokes marijuana stating she takes 2-3 puffs every few hours. Borderline dm. History of Any Multi-Drug Resistant Organisms: None Reported Past Surgical History: Section, Hysterectomy Additional Past Surgical History / Comment(s): section x2. 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 Past Anesthesia/Blood Transfusion Reactions: No Reported Reaction Past Psychological History: No Psychological Hx Reported Smoking Status: Current every day smoker Past Alcohol Use History: Occasional Past Drug Use History: Marijuana - Past Family History Father Family Medical History: CVA/TIA, Hypertension Additional Family Medical History / Comment(s): Massive stroke, [place] resulting in Cardiac Arrest. Mother Additional Family Medical History / Comment(s): from brain aneurysm at the age of 28 Medications and Allergies Home Medications Medication Instructions Recorded Confirmed Type Atorvastatin [Lipitor] 20 mg PO HS 08/16/22 08/16/22 History Ergocalciferol [Vitamin D2 (1250 1,250 mcg PO MO 08/16/22 08/16/22 History Mcg = 30370 Iu)] amLODIPine [Norvasc] 5 mg PO DAILY 08/16/22 08/16/22 History Allergies Allergy/AdvReac Type Severity Reaction Status Date / Time aspirin AdvReac Nausea & Verified 08/16/22 10:35 Vomiting Physical Exam Osteopathic Statement: *. No significant issues noted on an osteopathic structural exam other than those noted in the History and Physical/Consult. Vitals: Vital Signs Temp Pulse Resp BP Pulse Ox 08/18/22 14:00 52 L 18 08/18/22 12:00 98.8 F 52 L 18 163/75 97 08/18/22 08:00 98.2 F 62 18 207/87 98 08/18/22 03:30 98.0 F 48 L 14 103/58 97 08/18/22 02:00 16 08/17/22 22:49 98.3 F 46 L 16 125/65 96 08/17/22 20:01 98.4 F 47 L 16 98/46 98 08/17/22 16:35 16 08/17/22 16:13 98.0 F 52 L 16 155/68 100 Intake and Output 08/17/22 08/18/22 08/18/22 22:59 06:59 14:59 Intake Total 260 240 Balance 260 240 Intake: IV 10 Invasive Line 1 5 Invasive Line 2 5 Oral 250 240 Other: Voiding Method Toilet Toilet Toilet # Voids 1 No acute distress, oriented 3. Her saturation is 97%. HEENT examination is grossly unremarkable. Mucous membranes are moist. No oral lesions. Neck supple. Full range of motion. No adenopathy thyromegaly or neck vein di stention. Cardiovascular examination reveals regular rhythm rate. S1-S2 normal. No S3 or S4. No discernible murmur noted. Heart rate 52 bpm. Lungs reveal clear breath sounds. Breath sounds are equal bilaterally. No adventitious lung sounds including wheezes rhonchi or crackles. Abdomen soft bowel sounds are heard. No masses or tenderness. Extremities are intact. No cyanosis clubbing or edema. Skin is without rash or lesion. Neurologic examination is brief but nonfocal. Results - Laboratory Findings CBC and BMP: 08/18/22 08:22 08/18/22 08:22 PT/INR, D-dimer PT 9.8 sec (9.0-12.0) 08/16/22 06:14 INR 0.9 (<1.2) 08/16/22 06:14 Abnormal lab findings: Abnormal Labs 08/16/22 08/16/22 08/16/22 06:14 06:14 07:39 WBC 14.3 H Hgb 16.4 H Hct 47.4 H Neutrophils # 10.5 H Chloride BUN Glucose POC Glucose (mg/dL) 154 H Hemoglobin A1c 6.5 H Calcium AST ALT Troponin I Total Protein Albumin HDL Cholesterol 08/16/22 08/16/22 08/16/22 08:08 08:09 11:14 WBC Hgb Hct Neutrophils # Chloride BUN 18 H Glucose 152 H POC Glucose (mg/dL) 134 H Hemoglobin A1c Calcium 8.3 L AST 276 H ALT 52 H Troponin I 15.100 H* Total Protein Albumin HDL Cholesterol 08/16/22 08/17/22 08/17/22 19:53 06:39 06:39 WBC 11.6 H Hgb Hct Neutrophils # 8.1 H Chloride BUN Glucose POC Glucose (mg/dL) 130 H Hemoglobin A1c Calcium AST ALT Troponin I Total Protein Albumin HDL Cholesterol 31.60 L 08/17/22 08/18/22 06:39 08:22 WBC Hgb Hct Neutrophils # Chloride 109 H BUN Glucose 120 H 180 H POC Glucose (mg/dL) Hemoglobin A1c Calcium AST 186 H ALT 58 H Troponin I Total Protein 5.8 L Albumin 3.3 L HDL Cholesterol - Diagnostic Findings Chest x-ray: image reviewed Assessment and Plan Assessment: Acute inferior wall ST segment elevation myocardial infarction, status post PCI/stent. CT abnormalities seen on a scan dated April 2022. History of hyperlipidemia. History of hypertension. Obesity. History of chronic tobacco use. Plan: Plan dated 08/18/2022. The patient will see us in the office, for follow-up. She'll need a follow-up computed tomography scan, and a complete pulmonary function test. We have counseled about the importance of smoking cessation. No additional workup need be done at this time, as she was admitted for an inferior wall ST segment elevation myocardial infarction, and had a stent placed. She is not having any pulmonary issues, and she's not requiring any supplemental oxygen. Time with Patient: Greater than 30
[2022-08-18] MEDS: HEPARIN SODIUM,PORCINE/PF 5,000 UNIT/0.5 ML SYRINGE SQ SCH (19:59)
[2022-08-18] MEDS: FAMOTIDINE 20 MG TAB PO SCH (20:00)
[2022-08-18] MEDS: ATORVASTATIN 80 MG TAB PO SCH (20:05)
[2022-08-18] MEDS ORDERED: FAMOTIDINE 20 MG/2 ML VIAL IV SCH (21:00)
[2022-08-19] MEDS: HYDROcodone/APAP 5-325MG 1 EACH TAB PO PRN ×2 (02:50→08:46)
[2022-08-19] MEDS: PANTOPRAZOLE 40 MG TABLET PO SCH (06:03)
[2022-08-19] MEDS: HEPARIN SODIUM,PORCINE/PF 5,000 UNIT/0.5 ML SYRINGE SQ SCH (08:45)
[2022-08-19] MEDS: ASPIRIN 81 MG PO SCH (08:45)
[2022-08-19] MEDS: lisinopriL 5 MG TAB PO SCH (08:45)
[2022-08-19] MEDS: TICAGRELOR 90 MG TAB PO SCH (08:45)
[2022-08-19] MEDS: FAMOTIDINE 20 MG TAB PO SCH (08:45)
[2022-08-19] MEDS: LIDOCAINE 5% PATCH TOPICAL SCH (08:47)
--- NOTE | 2022-08-19 12:50 | P.PN ---
Subjective Progress Note Date: 08/19/22 HISTORY OF PRESENT ILLNESS: Patient is a pleasant 57-year-old female with history of hypertension, hyperlipidemia, tobacco abuse, family history of CAD who presents for chest pain. Patient has been having off-and-on chest pain or last 3-4 days. Chest pain associated with diaphoresis and nausea. Has some pain down her left arm. Has a history of borderline diabetes however taken off medications after she lost significant weight. She does have family history of father from massive [place]. 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 08/17 Patient seen and examined. Patient had heart catheterization yesterday with PCI of PLV with a residual OM stenosis. Echocardiogram reviewed with the EF 55-60%. After stenting she denies any further chest pain. Troponin elevated up to 15. She has been bradycardic and unable to receive metoprolol with heart rates in the 30s to 40s however asymptomatic. Denies any prior history of bradycardia. 08/18/2022 Patient examined this morning at the bedside. Patient denies chest pain or pressure. Denies SOB. Blood pressure elevated this morning secondary to back pain. Repeat BP with improvement. Telemetry reveals sinus bradycardia. 08/19/2022 Patient examined this morning at the bedside. Patient denies chest pain or pressure. Denies SOB. Vital signs are stable. PHYSICAL EXAM: VITAL SIGNS: Reviewed. GENERAL: Well-developed in no acute distress. NECK: Supple. No JVD or thyromegaly LUNGS: Respirations even and unlabored. Lungs essentially clear to auscultation bilaterally. HEART: Regular rate and rhythm. S1 and S2 heard. EXTREMITIES: Normal range of motion. No clubbing or cyanosis. Peripheral pulses intact. No lower extremity edema ASSESSMENT: 1. Inferior STEMI, s/p PCI PLV 08/16 2. Hypertension, elevated on presentation 3. Hyperlipidemia 4. Tobacco abuse 5. Family history of CAD 6. Asymptomatic bradycardia, unable to tolerate BBlocker 7. CAD with residual OM stenosis PLAN: Continue current cardiac medications No betablocker given bradycardia Staged PCI of OM in 1-2 weeks Stable for discharge home today from a cardiac standpoint Patient to follow up outpatient with Dr. Newby Nurse practitioner note has been reviewed by physician. Signing provider agrees with the documented findings, assessment, and plan of care. Objective - Vital Signs Vital signs: Vital Signs Temp 98.1 F 08/19/22 11:13 Pulse 45 L 08/19/22 11:13 Resp 16 08/19/22 11:13 BP 171/66 08/19/22 11:13 Pulse Ox 99 08/19/22 11:13 FiO2 Intake & Output 08/18/22 08/19/22 08/19/22 18:59 06:59 18:59 Intake Total 480 360 180 Balance 480 360 180 Intake: Oral 480 360 180 Other: Voiding Method Toilet Toilet Toilet # Voids 2 - Labs CBC & Chem 7: 08/18/22 08:22 08/18/22 08:22
--- NOTE | 2022-08-19 13:43 | P.PN ---
Subjective Progress Note Date: 08/19/22 Principal diagnosis: Abnormal CAT scan. Pulmonary consult dated 08/18/2022. 57-year-old female who presented to the emergency department on August 16. The patient came in with chest pain. The patient presented with an ST segment elevation myocardial infarction. She does have a history of hypertension, hyperlipidemia, tobacco use, and a family history of CAD. She was seen by cardiology and diagnosed with an inferior ST segment elevation myocardial infarction, and had a stent placed. Chest x-ray is suggestive of possible mild fluid overload/CHF, and also changes of COPD. In addition, she had a previous computed tomography scan done in April of last year, which showed an abnormality, but apparently was never followed up. The patient is not having any respiratory issues at this time. The patient is currently on room air. For that reason, I told her that her workup, would be as an outpatient. The previous CT was done 04/28/2022. It showed some enlarged lymph nodes, and enlarged pulmonary artery, and some scattered parenchymal changes, and a follow- up CT was recommended in 3 months. Her CBC from today was completely normal. Also her electrolyte profile was completely normal. Glucose 180. Her troponin on admission, was 15.1. Progress note dated 08/19/2022. 57-year-old female seen yesterday in consultation. The patient was admitted with a diagnosis of ST segment elevation myocardial infarction. She does have a history of hypertension, hyperlipidemia, chronic tobacco use, and a family history of CAD. On a previous admission, back in April 2022, she had an abnormal computed tomography scan of the chest. It shows some enlarged lymph no yeimi, as well as some scattered parenchymal changes. I told her yesterday, the she would have an outpatient evaluation for her abnormal scan. This would include careful observation versus biopsy. Currently, she is on room air. She's not receiving any IV fluids. He is hoping to be discharged soon. No new labs today. Labs from August 18 have been reviewed already. Objective - Vital Signs Vital signs: Vital Signs Temp 98.1 F 08/19/22 11:13 Pulse 46 L 08/19/22 13:17 Resp 16 08/19/22 11:13 BP 171/66 08/19/22 11:13 Pulse Ox 99 08/19/22 11:13 FiO2 Intake & Output 08/18/22 08/19/2208/19/23 18:59 06:59 18:59 Intake Total 480 360 900 Balance 480 360 900 Intake: Oral 480 360 900 Other: Voiding Method Toilet Toilet Toilet # Voids 2 - Exam No acute distress, oriented 3. Her saturation is 98 %. HEENT examination is grossly unremarkable. Mucous membranes are moist. No oral lesions. Neck supple. Full range of motion. No adenopathy thyromegaly or neck vein distention. Cardiovascular examination reveals regular rhythm rate. S1-S2 normal. No S3 or S4. No discernible murmur noted. Heart rate 69 bpm. Lungs reveal clear breath sounds. Breath sounds are equal bilaterally. No adventitious lung sounds including wheezes rhonchi or crackles. Abdomen soft bowel sounds are heard. No masses or tenderness. Extremities are intact. No cyanosis clubbing or edema. Skin is without rash or lesion. Neurologic examination is brief but nonfocal. - Labs CBC & Chem 7: 08/18/22 08:22 08/18/22 08:22 Assessment and Plan Assessment: Acute inferior wall ST segment elevation myocardial infarction, status post PCI/stent. CT abnormalities seen on a scan dated April 2022. History of hyperlipidemia. History of hypertension. Obesity. History of chronic tobacco use. Plan: Plan dated 08/18/2022. The patient will see us in the office, for follow-up. She'll need a follow-up computed tomography scan, and a complete pulmonary function test. We have counseled about the importance of smoking cessation. No additional workup need be done at this time, as she was admitted for an inferior wall ST segment elevation myocardial infarction, and had a stent placed. She is not having any pulmonary issues, and she's not requiring any supplemental oxygen. Plan dated 08/19/2022. The patient is doing well. Again, she lacks all pulmonary complaints. Again we talked about the fact that she will see me in the office after discharge. We might just observe these areas for appear to time, and do other studies such as a PET scan. In addition, she may need a biopsy down the road. We do automobile travel club counselor her about the importance of smoking cessation. She was admitted with an ST segment elevation myocardial infarction, and a stent was placed. Prognosis is c ertainly guarded. Time with Patient: Less than 30
[2022-08-19 16:08] VITALS: BP 115/59; PULSE 46; RESP 15; TEMP 98.3
--- NOTE | 2022-08-20 00:54 | P.DS ---
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 Patient will need to follow-up with cardiology as an outpatient for further symptoms of her disease arteries. Patient was cleared for discharge by senior benefits analyst -Right upper lobe fullness, his follow-up with Dr. Mullins as outpatient -Acute and chronic lower back pain, most likely musculoskeletal. -Hypertension -Hyperlipidemia -History of vitamin D Hospital course: 57-year-old female with history of hypertension, hyperlipidemia, tobacco abuse, family history of CAD who presents for chest pain. Patient has been having off-and-on chest pain or last 3-4 days. Chest pain associated with diaphoresis and nausea. She is instructed to have inferior STEMI status post PCI and /. Patient tripped on dual antiplatelet therapy, cartilages cleared her for discharge today. Patient also been evaluated by pulmonary team for right upper chest fullness, recommended outpatient workup including CAT scan, risks including but limited to cancer explained for the patient and she agrees to the appointments made for her with Dr. Mullins on 09/02. Patient as asymptomatic bradycardia today and cleared for discharge by senior benefits analyst Her lower back pain yesterday significantly improved and patient able to walk through with no difficulty. Patient confirmed to me that as well. 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 Postoperative the patient for discharge occluded cardiology, vascular surgery and pulmonary team. Problems and management plan were discussed with the patient and he verbalized understanding and acceptance Patient was found stable and can be discharged home in guarded prognosis however he needs follow-up as an outpatient. Patient was instructed to follow up with PCP within one week and patient agrees Patient was instructed to follow up with senior benefits analyst Dr. Newby in 1 week and with the stock preparer Dr. Aggarwal on 09/02 and she agrees. Also patient was i nstructed to follow up with vascular surgery Dr. french in 1-2 weeks and she agrees Physical exam Gen: patient is a AAOx3, no distress CVS: S1-S2, RRR, no murmur Lungs: B/L CTA, no wheezing Abdomen: soft, no distention, no tenderness, positive bowel sounds Extremity: no leg edema or induration Get up and go test: Normal Time spent more than 35 minutes Patient Condition at Discharge: Critical Plan - Discharge Summary Discharge Rx Participant: No New Discharge Prescriptions: New Aspirin 81 mg PO DAILY #30 tab Atorvastatin [Lipitor] 80 mg PO HS #30 tab Nitroglycerin Sl Tabs [Nitrostat] 0.4 mg SUBLINGUAL Q5M PRN #20 tab PRN Reason: Chest Pain HYDROcodone/APAP 5-325MG [[place] 5-325] 1 each PO Q12HR PRN 3 Days #6 tab PRN Reason: Moderate To Severe Pain (4-10) Famotidine [Pepcid] 20 mg PO DAILY #30 tab lisinopriL [Zestril] 5 mg PO DAILY #30 tab Ticagrelor [Brilinta] 90 mg PO BID #60 tab Lidocaine 5% Patch [Lidoderm 5% Patch] 1 patch TOPICAL DAILY #3 patch Acetaminophen Tab [Tylenol] 650 mg PO Q6HR PRN tab PRN Reason: Fever and/ or Mild Pain Docusate [Colace] 100 mg PO BID 5 Days #10 capsule Continue Ergocalciferol [Vitamin D2 (1250 Mcg = 57855 Iu)] 1,250 mcg PO MO Discontinued amLODIPine [Norvasc] 5 mg PO DAILY Atorvastatin [Lipitor] 20 mg PO HS Discharge Medication List Ergocalciferol [Vitamin D2 (1250 Mcg = 91306 Iu)] 1,250 mcg PO MO 08/16/22 [History] Acetaminophen Tab [Tylenol] 650 mg PO Q6HR PRN tab 08/19/22 [Rx] Aspirin 81 mg PO DAILY #30 tab 08/19/22 [Rx] Atorvastatin [Lipitor] 80 mg PO HS #30 tab 08/19/22 [Rx] Docusate [Colace] 100 mg PO BID 5 Days #10 capsule 08/19/22 [Rx] Famotidine [Pepcid] 20 mg PO DAILY #30 tab 08/19/22 [Rx] HYDROcodone/APAP 5-325MG [[place] 5-325] 1 each PO Q12HR PRN 3 Days #6 tab 08/19/22 [Rx] Lidocaine 5% Patch [Lidoderm 5% Patch] 1 patch TOPICAL DAILY #3 patch 08/19/22 [Rx] Nitroglycerin Sl Tabs [Nitrostat] 0.4 mg SUBLINGUAL Q5M PRN #20 tab 08/19/22 [Rx] Ticagrelor [Brilinta] 90 mg PO BID #60 tab 08/19/22 [Rx] lisinopriL [Zestril] 5 mg PO DAILY #30 tab 08/19/22 [Rx] Follow up Appointment(s)/Referral(s): Severo Newby DO [STAFF PHYSICIAN] - 1 Week (we recommend to check your live r enz test with your doctor within one week, office will call you with date and time of your appointment) Hunter Mullins DO [Doctor of Osteopathic Medicine] - 09/02/22 2:15 pm Juanis Cardenas MD [Primary Care Provider] - 1-2 days (we recommend to check your liver enz test with your doctor within one week, office will call pt to schedule this appointment) Lopez Bear MD [STAFF PHYSICIAN] - 1 Week (Office closed-please call and make a follow up appointment) Patient Instructions/Handouts: Heart Attack (DC), How to Stop Smoking (DC) Activity/Diet/Wound Care/Special Instructions: heart healthy diet activity is restricted till you see your doctor we recommend to check your liver enz test with your doctor within one week Discharge Disposition: HOME WITH HOME HEALTH SERVICES
== END 2022-08-19 17:18 | disposition home health service (06) | DRG 174 ==
LOC: EC 05:45 → 2SICU 06:05 → 3SCARD 08-17 15:49
PROVIDERS: ADMIT Hospitalist; ATTEND Hospitalist
PROC: B2111ZZ Fluoroscopy of Multiple Coronary Arteries using Low Osmolar Contrast (ICD-10-PCS; 2022-08-16)
PROC: 027034Z Dilation of Coronary Artery, One Artery with Drug-eluting Intraluminal Device, Percutaneous Approach (ICD-10-PCS; principal; 2022-08-16 06:29)
PROC: 4A023N7 Measurement of Cardiac Sampling and Pressure, Left Heart, Percutaneous Approach (ICD-10-PCS; 2022-08-16 06:29)
DX: I21.19 ST elevation (STEMI) myocardial infarction involving other coronary artery of inferior wall (principal); I77.79 Dissection of other specified artery; E66.9 Obesity, unspecified; J44.9 Chronic obstructive pulmonary disease, unspecified; I10 Essential (primary) hypertension; I08.3 Combined rheumatic disorders of mitral, aortic and tricuspid valves; G89.29 Other chronic pain; E55.9 Vitamin D deficiency, unspecified; E78.5 Hyperlipidemia, unspecified; I25.119 Atherosclerotic heart disease of native coronary artery with unspecified angina pectoris; R00.1 Bradycardia, unspecified; M51.37 Other intervertebral disc degeneration, lumbosacral region; F17.210 Nicotine dependence, cigarettes, uncomplicated; Z88.6 Allergy status to analgesic agent; Z82.49 Family history of ischemic heart disease and other diseases of the circulatory system; Z82.41 Family history of sudden cardiac death; Z79.899 Other long term (current) drug therapy; Z95.5 Presence of coronary angioplasty implant and graft; Z68.29 Body mass index [BMI] 29.0-29.9, adult; Z28.310 Unvaccinated for COVID-19
CPT/HCPCS: 71045; 72100; 80048; 80053; 80061; 83036; 83735; 84132; 84145; 84443; 84484; 85025; 85610; 85730; 93005; 93306; 93458; 96374; 99285

== ENCOUNTER 2022-09-10 10:54 | Day surgery (SDC) | payer OTHER ==
[~2022-09-10 10:54] MED LIST: ALPRAZolam 0.25 MG TAB PO PRN; ALPRAZolam 0.5 MG TAB PO PRN; ASPIRIN 325 MG TAB PO ONE; ATORVASTATIN 80 MG TAB PO ONE; HEPARIN SODIUM,PORCINE 10,000 UNIT in SODIUM CHLORIDE 0.9% 1,000 ML IRRIGATION PRN; HEPARIN SODIUM,PORCINE 2,500 UNIT in SODIUM CHLORIDE 0.9% 250 ML IRRIGATION PRN; NITROGLYCERIN SL TABS 0.4 MG TAB SUBLINGUAL PRN; SODIUM CHLORIDE 0.9% 1,000 ML in EMPTY BAG 1 BAG IV SCH
[2022-09-10] MEDS ORDERED: ASPIRIN 81 MG ONE (11:18)
[2022-09-10] MEDS ORDERED: lisinopriL 5 MG TAB PO STA (11:24)
[2022-09-10] MEDS ORDERED: LIDOCAINE 1% INJ 10MG/ML (5 ML VIAL-PF) SQ ONE (13:30)
[2022-09-10] MEDS ORDERED: fentaNYL (PF) 50 MCG/ML 2 ML AMP ONE (13:31)
[2022-09-10] MEDS ORDERED: VERAPAMIL SYRINGE (5 MG/10 ML) INTRAARTER ONE (13:32)
[2022-09-10] MEDS ORDERED: fentaNYL (PF) 50 MCG/ML 2 ML AMP IV ONE (13:32)
[2022-09-10] MEDS ORDERED: MIDAZOLAM 2 MG/2 ML VIAL IV ONE (13:32)
[2022-09-10] MEDS ORDERED: HEPARIN SODIUM 1,000 UN/ML (10ML VL) IV ONE ×2 (13:35→14:08)
[2022-09-10] MEDS ORDERED: NITROGLYCERIN 1000MCG/10ML SYRINGE INTRACORON ONE ×3 (13:47→14:01)
[2022-09-10] MEDS ORDERED: IOPAMIDOL-370 125ML BTL INJ ONE (14:09)
[2022-09-10] MEDS ORDERED: RX INFO: IV CONTRAST WAS GIVEN 1 EACH MISC MISCELLANE PRN (14:13)
[2022-09-10] MEDS ORDERED: ATROPINE SULFATE 0.1 MG/ML 10ML SYRINGE IV PRN (14:13)
[2022-09-10] MEDS ORDERED: MAG HYDROX/AL HYDROX/SIMETH 30 ML CUP PO PRN (14:13)
[2022-09-10] MEDS ORDERED: ZOLPIDEM 5 MG TAB PO PRN (14:13)
[2022-09-10 15:43] VITALS: TEMP 97.8
[2022-09-10 17:34] LABS: Glucose,Whole Blood 104 mg/dL (70-110)
[2022-09-10 18:15] VITALS: RESP 18
[2022-09-10 18:17] VITALS: BP 130/72; PULSE 52
--- NOTE | 2022-09-11 21:34 | P.PRCINT ---
Percutaneous Coronary Int. - Percutaneous Coronary Intervention Percutaneous Coronary Intervention: PROCEDURES PERFORMED: Left heart catheterization, bilateral coronary angiography, PCI OM1 with overlapping 2.0 x 8mm and 2.0 x 12mm Chicken IDA DATE OF PROCEDURE: 09/10/2022 INDICATION: Staged PCI CONSENT:I have discussed the risks, benefits and alternative therapies for the above-mentioned procedure and for both sedation/analgesia as well as necessary blood product administration, if indicated, as they pertain to this patient. The patient has indicated understanding and acceptance of the risks and procedures discussed. PROCEDURE: After the risks, benefits and alternatives of the above mentioned procedure explained in detail with the patient, informed consent was obtained. Patient was taken to the catheterization lab and prepped and draped in usual fashion. 1% lidocaine was used to anesthetize the right radial artery. A 6- Vietnamese sheath was placed in the right radial artery using modified Seldinger technique. Left coronary angiography was performed with a 6-Vietnamese CLS 3.0 guide catheter and right coronary angiography was performed with a 5-Vietnamese JR5 catheter in various views. A 5-Vietnamese FR5 catheter was inserted into the left ventricle and pressure measurements were obtained. OM1 still had a 90% stenosis and therefore decision was made to perform PCI of OM1. The 6-Vietnamese CLS 3.0 guide was used to engage the left main. A 0.014 BMW wire was advanced in the distal OM1 branch. Predilation was performed with a 2.0 balloon. Next a 2.0 x 12 mm Chicken IDA was placed. There was still proximal stenosis and therefore an additional 2.0 x 8mm Jermaine IDA was placed with the help of a valerio wire. There was pseudo lesion related to the tortuosity which improved with pulling the wire. Final angiograms were performed. Intervention there is 90% stenosis and EMERY-3 flow and postintervention there was less than 10% stenosis and EMERY-3 flow. The right radial sheath was removed and a TR band was placed with hemostasis achieved. The patient tolerated the procedure well. Patient was transported back to the post catheterization holding area in stable condition. Conscious Sedation: Patient was monitored under the direct supervision of vision of myself for conscious sedation using Versed and fentanyl for a total duration of 32 minutes HEMODYNAMICS: Ao: 166/76 :V: 169/5, LVEDP 16mmHg SELECTIVE CORONARY ARTERIOGRAPHY: LEFT MAIN: The left main is a large caliber vessel which bifurcates into the LAD and circumflex. There is mild 10-20% left main stenosis. LEFT ANTERIOR DESCENDING CORONARY ARTERY: LAD is a large caliber vessel which wraps around to the apex. There are mild luminal irregularities. LEFT CIRCUMFLEX CORONARY ARTERY: Left circumflex is a moderate caliber vessel with mainly in OM1 with mid to distal OM1 90% stenosis. RIGHT CORONARY ARTERY: The right coronary artery is a large caliber vessel which gives off a PDA and PLV branch and is the dominant vessel. There is a patent stent in the PLV and otherwise mild luminal irregularities.. FINAL IMPRESSION: 1. CAD as described above including 90% OM1, s/p PCI OM1 with overlapping 2.0 x 8mm and 2.0 x 12mm Jermaine IDA 2. Mildly elevated left sided filling pressures PLAN: 1. Aggressive risk factor modification per most recent ACC/AHA guidelines. 2. Continue aspirin and Brillinta for 12 months.
== END 2022-09-10 19:15 | disposition home or self-care (01) ==
LOC: CATHCVL 10:54 → 6NMEDSUR 14:03 → CATHCVL 19:15
PROVIDERS: ATTEND Internal Medicine
DX: I25.10 Atherosclerotic heart disease of native coronary artery without angina pectoris (principal); I25.2 Old myocardial infarction; I10 Essential (primary) hypertension; E78.5 Hyperlipidemia, unspecified; Z82.49 Family history of ischemic heart disease and other diseases of the circulatory system; E11.9 Type 2 diabetes mellitus without complications; Z88.6 Allergy status to analgesic agent; Z79.82 Long term (current) use of aspirin; Z79.899 Other long term (current) drug therapy
CPT/HCPCS: 93458; 99152; 99153; C9600; J2250; J2001; J3010; J1644; Q9967

== ENCOUNTER → 2023-04-03 | Outpatient (CLI) | payer OTHER ==
--- NOTE | 2023-04-03 16:01 | US ---
EXAMINATION TYPE: US kidneys/renal and bladder DATE OF EXAM: 04/03/2023 COMPARISON: NONE CLINICAL INDICATION: Female, 58 years old with history of R31.29 HEMSTURIA microscopic; Smoker; Urin indigo urgency and frequency; EXAM MEASUREMENTS: Right Kidney: 11.6 x 6.9 x 5.9 cm Left Kidney: 8.8 x 6.2 x 4.8 cm Right Kidney: 11.6 x 6.9 x 5.9 cm Left Kidney: 8.8 x 6.2 x 4.8 cm Bladder: Not fully distended Bilateral Jets seen: not able to assess; patient stated bladder was full and could no longer hold i t. IMPRESSION: 1. Normal renal ultrasound. 2. Unable to assess bladder during this exam
--- NOTE | 2023-04-03 16:24 | CT ---
EXAMINATION TYPE: CT chest wo con CT DLP: 490 mGycm, Automated exposure control for dose reduction was used. DATE OF EXAM: 04/03/2023 4:02 PM COMPARISON: CT chest 04/28/2022, chest radiograph 08/16/2022 CLINICAL INDICATION:Female, 58 years old with history of R93.[address] scan; PHH, f/u emphysema TECHNIQUE: Multiple axial images were obtained through the chest without IV contrast. Lack of IV or o ral contrast limits evaluation of solid and hollow organ viscera. . Coronal and sagittal reformats re viewed. FINDINGS: LUNGS/ PLEURA: No pleural effusion pneumothorax. Similar bilateral lower lobe superior segment reticu lar scarring. Mild centrilobular emphysematous changes most pronounced in the anterior right upper lo be. New tree-in-bud nodular opacities within the medial aspect of the right upper lobe (series 4, keith ge 20). AIRWAY: Patent and unremarkable.. HEART: Size within normal limits. No pericardial effusion. Moderate coronary tear calcifications. Varun ral annulus and aortic valvular calcifications. MEDIASTINUM: Enlarged right hilar lymph node measuring 1.2 cm short axis. VASCULATURE: No aortic aneurysm. Mild atherosclerotic calcification of the aorta. MUSCULOSKELETAL: No acute osseous abnormalities SOFT TISSUES/LYMPH NODES: Unremarkable. LOWER NECK: No significant findings. UPPER ABDOMEN: No significant findings. IMPRESSION: 1. New tree-in-bud opacities within the medial aspect of the right upper lobe consistent with a infe ctious/inflammatory bronchiolitis. 2. Enlarged right hilar lymph node which is likely reactive to #1. 3. Mild centrilobular emphysematous changes with a few regions of subpleural scarring.
--- NOTE | 2023-04-06 08:49 | MM ---
Reason for Exam: Screening (asymptomatic). Last mammogram was performed 12 year(s) and 10 month(s) ago. Patient History: Menarche at age 10. First Full-Term at age 15. Left ovary removed at age 36. Right ovary removed at age 36. Hysterectomy at age 36. Postmenopausal. Paternal grandmother had breast cancer. Risk Values: Shilpa 5 year model risk: 1.0%. NCI Lifetime model risk: 5.3%. Prior Study Comparison: 12/23/2004 Bilateral Screening Mammogram, [facility]. 10/12/2008 Bilateral Screening Mammogram, [facility]. 06/05/2010 Bilateral Screening Mammogram, [facility]. Tissue Density: The breast tissue is heterogeneously dense. This may lower the sensitivity of mammography. Findings: Analyzed By CAD. There is no suspicious group of microcalcifications or new suspicious mass. Overall Assessment: Negative, BI-RAD 1 Management: Screening Mammogram of both breasts in [address] [facility] will attempt to contact patient to return for supplemental views and ultrasound if indicated. Patient should continue monthly self-breast exams. A clinical breast exam by your physician is recommended on an annual basis. This exam should not preclude additional follow-up of suspicious palpable abnormalities. Note on Shilpa scores and lifetime risk: 1. A Shilpa score greater than 3% is considered moderate risk. If this is the case, consider specialist referral to assess eligibility for a risk reducing agent. 2. If overall lifetime risk for the development of breast cancer is 20% or higher, the patient may qualify for future screening with alternating mammogram and breast MRI. Electronically signed and approved by: Hunter Gann DO
== END | disposition home or self-care (01) ==
LOC: RADMAMWWP 14:48
PROVIDERS: ATTEND Family Medicine
DX: Z12.31 Encounter for screening mammogram for malignant neoplasm of breast (principal); J43.2 Centrilobular emphysema; R31.29 Other microscopic hematuria; R39.15 Urgency of urination; R91.8 Other nonspecific abnormal finding of lung field; F17.200 Nicotine dependence, unspecified, uncomplicated; R59.0 Localized enlarged lymph nodes; R93.89 Abnormal findings on diagnostic imaging of other specified body structures; Z80.3 Family history of malignant neoplasm of breast; Z78.0 Asymptomatic menopausal state; J98.4 Other disorders of lung
CPT/HCPCS: 71250; 76770; 77063; 77067

== ENCOUNTER 2023-08-04 18:02 | Observation (INO) | payer OTHER ==
--- NOTE | 2023-08-04 18:30 | ED ---
General Adult HPI - General Chief complaint: Chest Pain Stated complaint: SOB, Pain in L arm Time Seen by Provider: 08/04/23 18:12 Source: patient, RN notes reviewed Mode of arrival: ambulatory Limitations: no limitations - History of Present Illness Initial comments: Patient is a 58-year-old female presenting to the emergency department with concerns for chest discomfort. Symptoms started yesterday. Discomfort is rated 5/10. Patient has some radiation to the left upper arm. No associated dyspnea. No diaphoresis. Patient states discomfort feels like tightness. No history of similar symptoms previously however patient did have a large heart attack around 1 year ago. No calf pain. - Related Data Home Medications Medication Instructions Recorded Confirmed Ergocalciferol [Vitamin D2 (1250 1,250 mcg PO MO 08/16/22 09/10/22 Mcg = 27124 Iu)] Previous Rx's Medication Instructions Recorded Acetaminophen Tab [Tylenol] 650 mg PO Q6HR PRN tab 08/19/22 Aspirin 81 mg PO DAILY #30 tab 08/19/22 Atorvastatin [Lipitor] 80 mg PO HS #30 tab 08/19/22 Docusate [Colace] 100 mg PO BID 5 Days #10 capsule 08/19/22 Famotidine [Pepcid] 20 mg PO DAILY #30 tab 08/19/22 HYDROcodone/APAP 5-325MG [Hutto 1 each PO Q12HR PRN 3 Days #6 tab 08/19/22 5-325] Lidocaine 5% Patch [Lidoderm 5% 1 patch TOPICAL DAILY #3 patch 08/19/22 Patch] Nitroglycerin Sl Tabs [Nitrostat] 0.4 mg SUBLINGUAL Q5M PRN #20 tab 08/19/22 Ticagrelor [Brilinta] 90 mg PO BID #60 tab 08/19/22 lisinopriL [Zestril] 5 mg PO DAILY #30 tab 08/19/22 Allergies Allergy/AdvReac Type Severity Reaction Status Date / Time aspirin AdvReac Nausea & Verified 08/04/23 18:11 Vomiting Review of Systems ROS Statement: Those systems with pertinent positive or pertinent negative responses have been documented in the HPI. ROS Other: All systems not noted in ROS Statement are negative. Constitutional: Denies: fever Eyes: Denies: eye pain ENT: Denies: ear pain Respiratory: Reports: as per HPI Cardiovascular: Reports: as per HPI, chest pain Endocrine: Denies: fatigue Gastrointestinal: Denies: abdominal pain Genitourinary: Denies: dysuria Musculoskeletal: Denies: back pain Skin: Denies: rash Past Medical History Past Medical History: Hyperlipidemia, Hypertension, Myocardial Infarction ([place]) Additional Past Medical History / Comment(s): Patient states she lives in a two story home and does not drive. Shares home with oldest daughter and 16month old grandson (son of youngest daughter) who she takes care of uti -e.coli. Patient states she has sleep apena but no longer has cpap and hasn't worn it in 16+ years. Recently dx with CPOD and emphysemia. Family hx CAD- Dad from [place] with Cardiac Arrest. Patient archana smokes 2ppd, sometimes more and has been smoking since the age of 11. Patient also smokes marijuana stating she takes 2-3 puffs every few hours. Borderline dm. History of Any Multi-Drug Resistant Organisms: None Reported Past Surgical History: Section, Heart Catheterization With Stent, H ysterectomy Additional Past Surgical History / Comment(s): section x2. 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 Past Anesthesia/Blood Transfusion Reactions: No Reported Reaction Past Psychological History: No Psychological Hx Reported Smoking Status: Current every day smoker Past Alcohol Use History: Occasional Past Drug Use History: Marijuana - Past Family History Father Family Medical History: CVA/TIA, Hypertension Additional Family Medical History / Comment(s): Massive stroke, [place] resulting in Cardiac Arrest. Mother Additional Family Medical History / Comment(s): from brain aneurysm at the age of 28 General Exam Limitations: no limitations General appearance: alert, in no apparent distress Head exam: Present: normocephalic Eye exam: Present: normal appearance Neck exam: Present: normal inspection Respiratory exam: Present: normal lung sounds bilaterally. Absent: chest wall tenderness Cardiovascular Exam: Present: regular rate, normal rhythm Expanded Peripheral pulses: 2+: Radial (R), Radial (L), Posterior Tibialis (R), Posterior Tibialis (L) GI/Abdominal exam: Present: soft. Absent: tenderness Extremities exam: Present: normal inspection. Absent: tenderness, calf tenderness Neurological exam: Present: alert Psychiatric exam: Present: normal affect, normal mood Skin exam: Present: other (Tobacco stained fingers) Course Vital Signs 08/04/23 08/04/23 08/04/23 18:09 18:37 18:51 Temperature 98.4 F Pulse Rate 84 58 L 58 L Respiratory 18 18 18 Rate Blood Pressure 195/84 177/81 166/83 O2 Sat by Pulse 96 98 98 Oximetry EKG Findings - EKG Results: EKG: interpreted by ERMD (Inferior T wave inversion), sinus rhythm, normal axis, normal QRS EKG shows: bradycardia Medical Decision Making - Medical Decision Making I discussed smoking cessation for greater than 3 minutes. The risk of smoking were discussed with the patient including but not limited to risks of cancer, stroke, coronary artery disease and COPD. Also discussed with patient were multiple methods of quitting smoking. Lastly we discussed the financial cost of smoking. Was pt. sent in by a medical professional or institution (, PA, OUTPATIENT ADMITTING CLERK, urgent care, hospital, or fpc...) When possible be specific @ -No Did you speak to anyone other than the patient for history (EMS, parent, family, police, friend...)? What history was obtained from this source @ -No Did you review nursing and triage notes (agree or disagree)? Why? @ -I reviewed and agree with nursing and triage notes Were old charts reviewed (outside hosp., previous admission, EMS record, old EKG, old radiological studies, urgent care reports/EKG's, fpc records)? Report findings @ -Previous EKG Differential Diagnosis (chest pain, altered mental status, abdominal pain women, abdominal pain men, vaginal bleeding, weakness, fever, dyspnea, syncope, headache, dizziness, GI bleed, back pain, seizure, CVA, palpatations, mental health, musculoskeletal)? @ -Differential Chest Pain: Stable Angina, Unstable Angina, STEMI, NSTEMI Aortic Dissection, Pneumothorax, Musculoskeletal, Esophageal Spasm GERD, Cholecystitis, Pancreatitis, Zoster, this is not meant to be an all-inclusive list. EKG interpreted by me (3pts min.). @ -As above X-rays interpreted by me (1pt min.). @ -Chest x-ray shows no acute process CT interpreted by me (1pt min.). @ -None done U/S interpreted by me (1pt. min.). @ -None done What testing was considered but not performed or refused? (CT, X-rays, U/S, labs)? Why? @ -None What meds were considered but not given or refused? Why? @ -None Did you discuss the management of the patient with other professionals (professionals i.e. , PA, OUTPATIENT ADMITTING CLERK, lab, RT, psych nurse, social science manager, sales performance manager, teacher, medical scientific officer, embedded case manager)? Give summary @ -Case discussed with practitioner Melyssa Peck who will admit covering Dr. Rowland Was smoking cessation discussed for >3mins.? @ -No Was critical care preformed (if so, how long)? @ -No Were there social determinants of health that impacted care today? How? (Homelessness, low income, unemployed, alcoholism, drug addiction, transportation, low edu. Level, literacy, decrease access to med. care, [place] [facility], rehab)? @ -No Was there de-escalation of care discussed even if they declined (Discuss DNR or withdrawal of care, Hospice)? DNR status @ -No What co-morbidities impacted this encounter? (DM, HTN, Smoking, COPD, CAD, Cancer, CVA, ARF, Chemo, Hep., AIDS, mental health diagnosis, sleep apnea, morbid obesity)? @ -None Was patient admitted / discharged? Hospital course, mention meds given and route, prescriptions, significant lab abnormalities, going to OR and other pertinent info. @ -Patient reevaluated and improved with nitroglycerin somewhat. Patient and family updated on results and plan. Patient will be admitted. Cardiology will be placed on consult. Admission orders written. Undiagnosed new problem with uncertain prognosis? @ -No Drug Therapy requiring intensive monitoring for toxicity (Heparin, Nitro, Insulin, Cardizem)? @ -No Were any procedures done? @ -No Diagnosis/symptom? @ -Chest pain Acute, or Chronic, or Acute on Chronic? @ -Acute Uncomplicated (without systemic symptoms) or Complicated (systemic symptoms)? @ -Default Side effects of treatment? @ -No Exacerbation, Progression, or Severe Exacerbation? @ -No Poses a threat to life or bodily function? How? (Chest pain, [place], [place], pneumonia, PE, COPD, DKA, ARF, appy, cholecystitis, CVA, Diverticulitis, Homicidal, [place], threat to staff... and all critical care pts) @ -No - Lab Data Result diagrams: 08/04/23 18:38 08/04/23 18:38 Lab Results 08/04/23 08/04/23 08/04/23 Range/Units 18:38 18:38 18:38 WBC 10.3 (3.8-10.6) k/uL RBC 4.42 (3.80-5.40) m/uL Hgb 14.2 (11.4-16.0) gm/dL Hct 41.8 (34.0-46.0) % MCV 94.5 (80.0-100.0) fL MCH 32.0 (25.0-35.0) pg MCHC 33.9 (31.0-37.0) g/dL RDW 13.2 (11.5-15.5) % Plt Count 181 (150-450) k/uL MPV 8.6 Neutrophils % 64 % Lymphocytes % 26 % Monocytes % 6 % Eosinophils % 1 % Basophils % 1 % Neutrophils # 6.6 (1.3-7.7) k/uL Lymphocytes # 2.7 (1.0-4.8) k/uL Monocytes # 0.6 (0-1.0) k/uL Eosinophils # 0.1 (0-0.7) k/uL Basophils # 0.1 (0-0.2) k/uL PT 10.3 (10.0-12.5) sec INR 0.9 (<1.2) APTT 23.1 (22.0-30.0) sec D-Dimer 0.46 (<0.60) mg/L FEU Sodium 141 (137-145) mmol/L Potassium 4.0 (3.5-5.1) mmol/L Chloride 109 H (98-107) mmol/L Carbon Dioxide 30 (22-30) mmol/L Anion Gap 2 mmol/L BUN 17 (7-17) mg/dL Creatinine 0.92 (0.52-1.04) mg/dL Est GFR (CKD-EPI)AfAm 79 (>60 ml/min/1.73 sqM) Est GFR (CKD-EPI)NonAf 68 (>60 ml/min/1.73 sqM) Glucose 110 H (74-99) mg/dL Calcium 8.7 (8.4-10.2) mg/dL Magnesium 1.8 (1.6-2.3) mg/dL Total Bilirubin 0.5 (0.2-1.3) mg/dL AST 28 (14-36) U/L ALT 34 (4-34) U/L Alkaline Phosphatase 96 (38-126) U/L Troponin I (0.000-0.034) ng/mL Total Protein 5.9 L (6.3-8.2) g/dL Albumin 3.6 (3.5-5.0) g/dL Amylase 56 (30-110) U/L Lipase 123 (23-300) U/L 08/04/23 Range/Units 18:38 WBC (3.8-10.6) k/uL RBC (3.80-5.40) m/uL Hgb (11.4-16.0) gm/dL Hct (34.0-46.0) % MCV (80.0-100.0) fL MCH (25.0-35.0) pg MCHC (31.0-37.0) g/dL RDW (11.5-15.5) % Plt Count (150-450) k/uL MPV Neutrophils % % Lymphocytes % % Monocytes % % Eosinophils % % Basophils % % Neutrophils # (1.3-7.7) k/uL Lymphocytes # (1.0-4.8) k/uL Monocytes # (0-1.0) k/uL Eosinophils # (0-0.7) k/uL Basophils # (0-0.2) k/uL PT (10.0-12.5) sec INR (<1.2) APTT (22.0-30.0) sec D-Dimer (<0.60) mg/L FEU Sodium (137-145) mmol/L Potassium (3.5-5.1) mmol/L Chloride (98-107) mmol/L Carbon Dioxide (22-30) mmol/L Anion Gap mmol/L BUN (7-17) mg/dL Creatinine (0.52-1.04) mg/dL Est GFR (CKD-EPI)AfAm (>60 ml/min/1.73 sqM) Est GFR (CKD-EPI)NonAf (>60 ml/min/1.73 sqM) Glucose (74-99) mg/dL Calcium (8.4-10.2) mg/dL Magnesium (1.6-2.3) mg/dL Total Bilirubin (0.2-1.3) mg/dL AST (14-36) U/L ALT (4-34) U/L Alkaline Phosphatase (38-126) U/L Troponin I <0.012 (0.000-0.034) ng/mL Total Protein (6.3-8.2) g/dL Albumin (3.5-5.0) g/dL Amylase (30-110) U/L Lipase (23-300) U/L Disposition Clinical Impression: Chest pain Disposition: ADMITTED IP TO THIS HOSP Is patient prescribed a controlled substance at d/c from ED?: No Referrals: Juanis Cardenas MD [Primary Care Provider] - 1-2 days Time of Disposition: 19:52
[2023-08-04] MEDS: NITROGLYCERIN SL TABS 0.4 MG TAB SUBLINGUAL STA ×3 (18:44→18:53)
[2023-08-04 18:55] LABS: Basophils # (A) 0.1 k/uL (0-0.2); Basophils % (A) 1 %; Eosinophils # (A) 0.1 k/uL (0-0.7); Eosinophils % (A) 1 %; HCT 41.8 % (34.0-46.0); HGB 14.2 gm/dL (11.4-16.0); Lymphocytes # (A) 2.7 k/uL (1.0-4.8); Lymphocytes % (A) 26 %; MCHC 33.9 g/dL (31.0-37.0); MCV 94.5 fL (80.0-100.0); Mean Platelet Volume 8.6; Monocytes # (A) 0.6 k/uL (0-1.0); Monocytes % (A) 6 %; Neutrophils # (A) 6.6 k/uL (1.3-7.7); Neutrophils % (A) 64 %; Platelet Count 181 k/uL (150-450); RBC 4.42 m/uL (3.80-5.40); RDW 13.2 % (11.5-15.5); WBC 10.3 k/uL (3.8-10.6)
[2023-08-04 19:08] LABS: ALT 34 U/L (4-34); AST 28 U/L (14-36); African American GFR (CKD) 79 (>60 ml/min/1.73 sqM); Albumin 3.6 g/dL (3.5-5.0); Alkaline Phosphatase 96 U/L (38-126); Amylase 56 U/L (30-110); Anion Gap 2 mmol/L; Blood Urea Nitrogen 17 mg/dL (7-17); Calcium 8.7 mg/dL (8.4-10.2); Carbon Dioxide 30 mmol/L (22-30); Chloride 109 mmol/L (98-107); Glucose 110 mg/dL (74-99); Lipase 123 U/L (23-300); Magnesium 1.8 mg/dL (1.6-2.3); Non-African American GFR(CKD) 68 (>60 ml/min/1.73 sqM); Sodium 141 mmol/L (137-145); Total Bilirubin 0.5 mg/dL (0.2-1.3); Total Protein 5.9 g/dL (6.3-8.2)
--- NOTE | 2023-08-04 19:10 | XR ---
EXAMINATION TYPE: XR chest 2V DATE OF EXAM: 08/04/2023 6:58 PM CLINICAL INDICATION:Female, 58 years old with history of Chest Pain; [facility] COMPARISON: Chest radiographs from 08/16/2022, CT chest 04/03/2023. TECHNIQUE: XR chest 2V Frontal and lateral views of the chest. FINDINGS: Lungs/Pleura: There is no evidence of pleural effusion, focal consolidation, or pneumothorax. Pulmonary vascularity: Unremarkable. Heart/mediastinum: Cardiomediastinal silhouette is unremarkable. Redemonstrated prominent right leeroy r lymph node. Musculoskeletal: No acute osseous pathology. IMPRESSION: 1. No evidence of acute cardiac pulmonary process. 2. Stable prominent right hilar lymph node.
[2023-08-04 19:15] LABS: INR 0.9 (<1.2); Partial Thromboplastin Time 23.1 sec (22.0-30.0); Prothrombin Time 10.3 sec (10.0-12.5)
[2023-08-04] MEDS ORDERED: NITROGLYCERIN SL TABS 0.4 MG TAB SUBLINGUAL PRN (19:53)
[2023-08-04] MEDS: NITROGLYCERIN OINT 1 INCH/GM PACKET TOPICAL SCH (19:59)
[2023-08-05] MEDS: lisinopriL 10 MG TAB PO STA (02:23)
[2023-08-05] MEDS ORDERED: DEXTROSE 50% SYRINGE 50 ML IVP PRN ×2 (03:08)
[2023-08-05 06:02] LABS: Glucose,Whole Blood 134 mg/dL (70-110)
[2023-08-05] MEDS: INSULIN ASPART (NovoLOG) 100 UNIT/ML VIAL SQ SCH (06:03)
[2023-08-05 07:30] VITALS: BP 146/68; PULSE 58; RESP 18; TEMP 97.5
[2023-08-05] MEDS ORDERED: AMINOPHYLLINE 500 MG/20 ML VIAL IV PRN (07:57)
[2023-08-05] MEDS ORDERED: REGADENOSON 0.4 MG/5 ML SYRINGE IV PRN (07:57)
[2023-08-05] MEDS ORDERED: CAFFEINE CITRATE 60 MG/3 ML VIAL IV PRN (07:57)
[2023-08-05] MEDS ORDERED: ASPIRIN 81 MG PO SCH (09:00)
[2023-08-05] MEDS ORDERED: TICAGRELOR 90 MG TAB PO SCH (09:00)
--- NOTE | 2023-08-05 10:15 | P.CRDCN ---
History of Present Illness Consult date: 08/05/23 Consult reason: chest pain History of present illness: History of present illness: This is a 58-year-old female patient of Dr. Newby with past medical history of coronary artery disease with inferior ST elevated myocardial infarction status post with previous PCI of the PLV and OM1, hypertension, hyperlipidemia, active tobacco use and dependence. We have been asked to evaluate the patient for chest pain. Patient states that she has had a chest fluttering sensation that started 2 days ago and also had left arm pain. This has resolved. Patient denies any recent stress test in the office. She is an active smoker, positive marijuana use, occasional alcohol use. EKG sinus bradycardia with ST-T wave changes Chest x-ray: No acute process CBC, INR, D-dimer within normal limits. Potassium 4.0, BUN 17 creatinine 0.92. Troponin negative x 3. Liver function test are normal. Magnesium 1.8. Home cardiac medications: Aspirin 81 mg daily, atorvastatin 80 mg daily, lisinopril 20 mg in the morning and 10 mg at bedtime, Nitrostat as needed, Brilinta 90 mg twice daily. Cardiac catheterization 09/10/2022 revealed CAD: 90% OM1 status post PCI OM1 with overlapping IDA. Mildly elevated left-sided filling pressures. Echocardiogram performed 08/16/2022 revealed EF of 55 to 60%, moderate mitral annular calcification, mild mitral regurgitation. Cardiac catheterization performed 08/16/2022 in the setting of an inferior ST elevated [place] revealed CAD with 99% PLV stenosis, 90% OM1 stenosis and otherwise mild luminal irregularities status post PCI of the PLV. Review Of Systems: At the time of my exam: CONSTITUTIONAL: Denies fever or chills. HEENT: Denies blurred vision, vision changes, or eye pain. Denies hemoptysis CARDIOVASCULAR: Denies chest pain. Denies orthopnea. Denies PND. Denies palpitations RESPIRATORY: Denies shortness of breath. GASTROINTESTINAL: Denies abdominal pain. Denies nausea or vomiting. HEMATOLOGIC: Denies bleeding disorders. GENITOURINARY: Denies any blood in urine. SKIN: Denies pruitis. Denies rash. Physical examination: Gen: This is a a 58-year-old female in no acute distress VS: reviewed HEENT: Head is atraumatic, normocephalic. Pupils equal, round. Sclerae is anicteric. NECK: Supple. No JVD. LUNGS: Few scattered wheezes. No intercostal retractions. HEART: Regular rate and rhythm. No murmur. ABDOMEN: Soft No tenderness. EXTREMITIES: No pedal edema. No calf tenderness. NEUROLOGICAL: Patient is awake, alert and oriented x3. Assessment: Palpitations Chest pain History of inferior ST elevated myocardial infarction with previous PCI Hypertension Hyperlipidemia Active tobacco use and dependence Plan: Resume patient's home cardiac medications Schedule patient for Lexiscan Cardiolite stress test today Obtain 2-D echocardiogram and Doppler study to assess cardiac structure and function Smoking cessation If testing is unremarkable, patient is cleared for discharge from cardiology and patient may follow-up with Dr. Newby in 1 to 2 weeks. Thank you kindly for this consultation. Nurse practitioner note has been reviewed, I agree with documented findings and plan of care. Patient was seen and examined. Past Medical History Past Medical History: Diabetes Mellitus, Hyperlipidemia, Hypertension, Myocardial Infarction ([place]) Additional Past Medical History / Comment(s): Patient states she lives in a two story home and does not drive. Shares home with oldest daughter uti -e.coli. Patient states she has sleep apena but no longer has cpap and hasn't worn it in 16+ years. Recently dx with CPOD and emphysemia. Patient elianay smokes 2ppd, sometimes more and has been smoking since the age of 11. Patient also smokes marijuana stating she takes 2-3 puffs every few hours. Borderline dm. Last Myocardial Infarction Date:: 08/16/22 History of Any Multi-Drug Resistant Organisms: None Reported Past Surgical History: Section, Heart Catheterization With Stent, Hysterectomy Additional Past Surgical History / Comment(s): section x2. 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 Past Anesthesia/Blood Transfusion Reactions: No Reported Reaction Date of Last Stent Placement:: 08/16/22 Past Psychological History: No Psychological Hx Reported Smoking Status: Current every day smoker Past Alcohol Use History: Occasional Past Drug Use History: Marijuana - Past Family History Father Family Medical History: CVA/TIA, Hypertension Additional Family Medical History / Comment(s): Massive stroke, [place] resulting in Cardiac Arrest. Mother Additional Family Medical History / Comment(s): from brain aneurysm at the age of 28 Medications and Allergies Home Medications Medication Instructions Recorded Confirmed Type Aspirin 81 mg PO DAILY #30 tab 08/19/22 08/04/23 Rx Famotidine [Pepcid] 20 mg PO DAILY #30 tab 08/19/22 08/04/23 Rx Nitroglycerin Sl Tabs [Nitrostat] 0.4 mg SUBLINGUAL Q5M PRN #20 tab 08/19/22 08/04/23 Rx Ticagrelor [Brilinta] 90 mg PO BID #60 tab 08/19/22 08/04/23 Rx Atorvastatin [Lipitor] 80 mg PO DAILY 08/04/23 08/04/23 History Escitalopram [Lexapro] 5 mg PO DAILY 08/04/23 08/04/23 History Ferrous Sulfate [Feosol] 325 mg PO DAILY 08/04/23 08/04/23 History lisinopriL [Zestril] 10 mg PO HS 08/04/23 08/04/23 History lisinopriL [Zestril] 20 mg PO DAILY 08/04/23 08/04/23 History Allergies Allergy/AdvReac Type Severity Reaction Status Date / Time aspirin AdvReac Nausea & Verified 08/04/23 21:12 Vomiting Physical Exam Vitals: Vital Signs Temp Pulse Pulse Resp BP BP Pulse Ox 08/05/23 07:00 97.5 F L 58 L 18 146/68 92 L 08/05/23 03:30 56 L 154/64 08/05/23 02:00 98.3 F 52 L 16 176/92 97 08/05/23 01:35 59 L 08/05/23 00:21 98.4 F 54 L 19 170/61 96 08/04/23 22:45 53 L 18 174/75 94 L 08/04/23 21:00 60 19 183/84 94 L 08/04/23 20:00 66 18 183/71 93 L 08/04/23 19:00 62 19 166/83 96 08/04/23 18:52 58 L 20 173/72 99 08/04/23 18:51 58 L 18 166/83 98 08/04/23 18:37 58 L 18 177/81 98 08/04/23 18:09 98.4 F 84 18 195/84 96 Intake and Output 08/04/23 08/05/23 08/05/23 22:59 06:59 14:59 Other: # Voids 1 Weight 77.111 kg 77.111 kg Results 08/04/23 18:38 08/04/23 18:38 Cardiac Enzymes 08/04/23 08/04/23 08/04/23 Range/Units 18:38 18:38 21:21 AST 28 (14-36) U/L Troponin I <0.012 <0.012 (0.000-0.034) ng/mL 08/04/23 Range/Units 23:45 AST (14-36) U/L Troponin I 0.025 (0.000-0.034) ng/mL Coagulation 08/04/23 Range/Units 18:38 PT 10.3 (10.0-12.5) sec APTT 23.1 (22.0-30.0) sec CBC 08/04/23 Range/Units 18:38 WBC 10.3 (3.8-10.6) k/uL RBC 4.42 (3.80-5.40) m/uL Hgb 14.2 (11.4-16.0) gm/dL Hct 41.8 (34.0-46.0) % Plt Count 181 (150-450) k/uL Comprehensive Metabolic Panel 08/04/23 Range/Units 18:38 Sodium 141 (137-145) mmol/L Potassium 4.0 (3.5-5.1) mmol/L Chloride 109 H (98-107) mmol/L Carbon Dioxide 30 (22-30) mmol/L BUN 17 (7-17) mg/dL Creatinine 0.92 (0.52-1.04) mg/dL Glucose 110 H (74-99) mg/dL Calcium 8.7 (8.4-10.2) mg/dL AST 28 (14-36) U/L ALT 34 (4-34) U/L Alkaline Phosphatase 96 (38-126) U/L Total Protein 5.9 L (6.3-8.2) g/dL Albumin 3.6 (3.5-5.0) g/dL Current Medications Generic Name Dose Route Start Last Admin Trade Name Freq PRN Reason Stop Dose Admin Aminophylline 100 mg 08/05/23 07:57 Aminophylline 500 Mg/20 Ml Vial IV 08/05/23 11:58 ONCE PRN Patient Response Atorvastatin Calcium 80 mg 08/05/23 09:00 Atorvastatin 80 Mg Tab PO DAILY [facility] Caffeine Citrate 60 mg 08/05/23 07:57 Caffeine Citrate 60 Mg/3 Ml Vial IV 08/05/23 11:58 ONCE PRN Patient Response Dextrose/Water 25 ml 08/05/23 03:08 Dextrose 50% Syringe 50 Ml IVP PER PROTOCOL PRN Hypoglycemia Protocol Dextrose/Water 50 ml 08/05/23 03:08 Dextrose 50% Syringe 50 Ml IVP PER PROTOCOL PRN Hypoglycemia Protocol Escitalopram Oxalate 5 mg 08/05/23 09:00 Escitalopram 5 Mg Tab PO DAILY [facility] Famotidine 20 mg 08/05/23 09:00 Famotidine 20 Mg Tab PO DAILY [facility] Ferrous Sulfate 325 mg 08/05/23 09:00 Ferrous Sulfate 325 Mg Tab PO DAILY [facility] Heparin Sodium (Porcine) 5,000 unit 08/05/23 09:00 Heparin Sodium,Porcine 5,000 Unit/Ml 1 Ml Vial SQ Q12HR [facility] Insulin Aspart 0 unit 08/05/23 07:30 08/05/23 06:03 Insulin Aspart (Novolog) 100 Unit/Ml Vial SQ Not Given ACHS [facility] Protocol Lisinopril 10 mg 08/05/23 21:00 Lisinopril 10 Mg Tab PO HS [facility] Lisinopril 20 mg 08/05/23 09:00 Lisinopril 20 Mg Tab PO DAILY [facility] Nitroglycerin 0.4 mg 08/04/23 19:53 Nitroglycerin Sl Tabs 0.4 Mg Tab SUBLINGUAL Q5M PRN Chest Pain Nitroglycerin 1 inch 08/04/23 20:00 08/05/23 05:32 Nitroglycerin Oint 1 Inch/Gm Packet TOPICAL Not Given Q6HR [facility] Regadenoson 0.4 mg 08/05/23 07:57 Regadenoson 0.4 Mg/5 Ml Syringe IV 08/05/23 11:58 ONCE PRN Per Protocol Intake and Output 08/04/23 08/05/23 08/05/23 22:59 06:59 14:59 Other: # Voids 1 Weight 77.111 kg 77.111 kg 08/04/23 18:38 08/04/23 18:38
[2023-08-05] MEDS: FERROUS SULFATE 325 MG TAB PO SCH (11:00)
[2023-08-05] MEDS: FAMOTIDINE 20 MG TAB PO SCH (11:00)
[2023-08-05] MEDS: ESCITALOPRAM 5 MG TAB PO SCH (11:00)
[2023-08-05] MEDS: lisinopriL 20 MG TAB PO SCH (11:00)
[2023-08-05] MEDS: ATORVASTATIN 80 MG TAB PO SCH (11:00)
[2023-08-05] MEDS: HEPARIN SODIUM,PORCINE 5,000 UNIT/ML 1 ML VIAL SQ SCH (11:18)
--- NOTE | 2023-08-05 11:32 | CA ---
Lexiscan Nuclear Stress Test Report Name: Carmen Simpson Exam Date: 08/05/2023 09:52 Exam Location: [facility] Ht (in): 63 Wt (lb): 170 BSA: 1.80 Ordering Phys: Malena Baer Referring Phys: MARNIE/DU Technologist: Shiva Brady Age: 58 Gender: F : 1965 Procedure CPT: Indications: Reflex order-Stress test ICD-10 Codes: Patient History: CHEST PAIN, PALPITATIONS, HTN, DIABETES, ELEVATED CHOLESTEROL LEVELS, FAMILY HX O F HEART DISEASE, CURRENT SMOKER, PRIOR LA, PRIOR CATH WITH STENTS X 3, COPD, ASTHMA, EMPHYSEMA Medications: Meds past 24 hrs: Pretest Chest Pain: STRESS TEST Lexiscan Protocol Exercise Duration (min:sec): 01:[address] Depressions (mm): Angina Score: Childs Score: Resting HR (bpm): 48 Peak HR (bpm): 96 Resting BP (mmHg): 186 / 70 Peak BP (mmHg): 186 / 70 MPHR: 160 Target HR: 136 % MPHR: 60 METS: 1.0 Total Dose: Peak Dose: Atropine: Double Product: 84958 BP Response: Stress Termination: INFUSION COMPLETE Stress Symptoms: NAUSEA Stress Summary: ECG ANALYSIS Resting ECG: Normal sinus rhythm with extensive ST-T wave changes Stress ECG: Patient was given intravenous Lexiscan as a protocol did not have chest pain and EKG changes are nondiagnostic CONCLUSIONS Inconclusive EKG portion of the stress test due to baseline EKG abnormalities Cardiolite portion of stress test will be reported separately Dr. Rc Merlos MD (Electronically Signed) Final Date: 05 August 2023 11:31
[2023-08-05 11:52] LABS: Chol/HDL Ratio 3.14 Ratio; LDL Cholesterol,Calculated 56.5 mg/dL (0.0-131.0)
[2023-08-05 12:15] LABS: Glucose,Whole Blood 212 mg/dL (70-110)
--- NOTE | 2023-08-05 12:51 | NM ---
EXAMINATION TYPE: NM stress lexiscan cardiolite DATE OF EXAM: 08/05/2023 COMPARISON: NONE CLINICAL INDICATION: Female, 58 years old with history of chest pain; TECHNIQUE: After the intravenous administration of 9.67 mCi Tc 99m Sestamibi - Cardiolite resting SP ECT images acquired 45 minutes post injection. The patient received 0.4mg Lexiscan, 26.1 mCi Tc 99m Sestamibi - Stress images obtained [address] injection FINDINGS: Review of stress and rest SPECT images demonstrates fixed defect along the mid to basal inferolateral wall which is more pronounced on the rest suggesting attenuation artifact. Similarly, a small area o f decreased perfusion along the apical anteroseptal wall is noted on rest suggesting attenuation dea fact. No distinct reversibility is seen. Gated analysis shows some global hypokinesis with an estima олег left ventricular ejection fraction of 43 %. TID is calculated at 0.6, within normal limits. IMPRESSION: 1. Gated analysis suggests some global hypokinesis with estimated LVEF of 43%. Clinically correlate. 2. A couple areas of attenuation artifact. No scintigraphic evidence for inducible ischemia.
--- NOTE | 2023-08-05 13:14 | HP ---
HISTORY AND PHYSICAL This is a combined history and physical and discharge summary. CHIEF COMPLAINT: Chest pain. HISTORY OF PRESENT ILLNESS: This is a 58-year-old woman with a past medical history of diabetes mellitus, CAD stent; was admitted with central chest pain, which was 5/10 in intensity with radiation to the left upper arm. The troponins are negative. Cardiology saw the patient. A stress test has been done in the facility is pending at this time. There is no history of any fever, rigors or chills. Currently, the patient is asymptomatic. D-dimer is also normal. PAST MEDICAL HISTORY: Reviewed include diabetes mellitus type 2, CAD stent. HOME MEDICATIONS: Reviewed include Zestril. Dose and rest of medications noted. ALLERGIES: Aspirin. FAMILY HISTORY: History of CVA and hypertension. SOCIAL HISTORY: Current smoking. REVIEW OF SYSTEMS: Fourteen-point review is negative as mentioned earlier. PHYSICAL EXAMINATION: VITAL SIGNS: Pulse is 58, blood pressure 146/60, respirations 18. HEENT: Conjunctivae normal. CHEST: Clear to auscultation. CARDIOVASCULAR: S1, S2. No murmurs. ABDOMEN: Soft. NERVOUS SYSTEM: Nonfocal. SKIN: No rashes. JOINTS: No active deforming arthropathy. LABORATORY DATA: Reviewed. Troponins are normal. Stress test is pending. ASSESSMENT: 1. Chest pain possible unstable angina. Myocardial infarction ruled out. 2. CAD stent. 3. Diabetes mellitus type 2. 4. Hypertension. 5. Hyperlipidemia. 6. Multiple complex medical issues. RECOMMENDATIONS AND DISCUSSION: This is a 58-year-old woman presented with chest pain, is currently asymptomatic. Myocardial infarction ruled out. Cardiology performed a stress test. The stress test is normal. The patient will be discharged in a stable condition with guarded prognosis with recommendation to continue home medications and follow up with primary physician, Dr. Olivarez and as well as Dr. Newby, her building consultant. On exam, vital signs are stable and please refer to the medication reconciliation sheet for list of medications. MMODL / IJN: [id number] /
--- NOTE | 2023-08-05 17:48 | CA ---
Transthoracic Echo Report Name: Carmen Simpson Age: 58 Gender: F : 1965 Exam Date: 08/05/2023 08:56 Exam Location: [place] [facility] Ht (in): 63 Wt (lb): 170 Ordering Physician: Malena Baer Attending/Referring Phys: [id number], Keyur Law Reporter Valeria Ramachandran RDCS Procedure CPT: Indications: chest pain, LVF Cardiac Hx: Technical Quality: Fair Contrast 1: Total Dose (mL): Contrast 2: Total Dose (mL): MEASUREMENTS (Male / Female) Normal Values 2D ECHO LV Diastolic Diameter PLAX 4.6 cm 4.2 - 5.9 / 3.9 - 5.3 cm LV Systolic Diameter PLAX 2.8 cm IVS Diastolic Thickness 1.4 cm 0.6 - 1.0 / 0.6 - 0.9 cm LVPW Diastolic Thickness 1.5 cm 0.6 - 1.0 / 0.6 - 0.9 cm LV Relative Wall Thickness 0.6 RV Internal Dim ED PLAX 3.6 cm LA Volume 78.2 cm??? 18 - 58 / 22 - 52 cm??? LA Volume Index 41.6 cm???/m??? 16 - 28 cm???/m??? M-MODE Aortic Root Diameter MM 2.8 cm LA Systolic Diameter MM 4.4 cm LA Ao Ratio MM 1.6 AV Cusp Separation MM 1.8 cm DOPPLER AV Peak Velocity 183.4 cm/s AV Peak Gradient 13.5 mmHg AV Mean Velocity 114.7 cm/s AV Mean Gradient 5.9 mmHg AV Velocity Time Integral 41.0 cm LVOT Peak Velocity 138.3 cm/s LVOT Peak Gradient 7.7 mmHg LVOT Velocity Time Integral 32.6 cm MV Peak Velocity 136.5 cm/s MV Peak Gradient 7.5 mmHg MV Mean Velocity 66.1 cm/s MV Mean Gradient 2.3 mmHg MV Velocity Time Integral 46.6 cm MV Area PHT 2.4 cm??? Mitral E Point Velocity 119.1 cm/s Mitral A Point Velocity 103.7 cm/s Mitral E to A Ratio 1.1 MV Deceleration Time 312.6 ms MV E' Velocity 5.0 cm/s Mitral E to MV E' Ratio 23.9 TR Peak Velocity 328.3 cm/s TR Peak Gradient 43.1 mmHg Right Ventricular Systolic Press 50.7 mmHg FINDINGS Left Ventricle Moderately increased left ventricular wall thickness. Left ventricular cavity size normal. Normal left ventricular systolic function with no obvious regional wall motion abnormalities. Left ventricular ejection fraction is estimated at 55-60 %. Right Ventricle Right ventricular dilatation. Normal right ventricular global systolic function. Severe pulmonary hypertension. Right ventricular systolic pressure estimated at 51mm hg. Right Atrium Right atrial dilatation. Left Atrium Severely increased left atrial volume. Mildly increased left atrial area. Mitral Valve Structurally normal mitral valve. No mitral stenosis. Moderate mitral regurgitation. Aortic Valve Trileaflet aortic valve. No aortic valve stenosis or regurgitation. Aortic valve sclerosis. Tricuspid Valve Structurally normal tricuspid valve. [id number] tricuspid regurgitation. Pulmonic Valve Trace pulmonic regurgitation. Pericardium No pericardial effusion. Aorta Normal size aortic root and proximal ascending aorta. CONCLUSIONS Normal LV function Moderate mitral regurgitation Previewed by: Dr. Rc Merlos MD (Electronically Signed) Final Date: 05 August 2023 17:48
[2023-08-05] MEDS ORDERED: lisinopriL 10 MG TAB PO SCH (21:00)
== END 2023-08-05 15:05 | disposition home or self-care (01) ==
LOC: EC 18:02 → 6NMEDSUR 19:54
PROVIDERS: ADMIT Hospitalist; ATTEND Hospitalist
DX: R07.89 Other chest pain (principal); R00.2 Palpitations; I25.2 Old myocardial infarction; E78.5 Hyperlipidemia, unspecified; I10 Essential (primary) hypertension; I25.10 Atherosclerotic heart disease of native coronary artery without angina pectoris; E11.9 Type 2 diabetes mellitus without complications; F17.200 Nicotine dependence, unspecified, uncomplicated; Z95.5 Presence of coronary angioplasty implant and graft; Z79.02 Long term (current) use of antithrombotics/antiplatelets; Z79.82 Long term (current) use of aspirin; Z79.899 Other long term (current) drug therapy; Z88.6 Allergy status to analgesic agent; Z82.41 Family history of sudden cardiac death; Z82.49 Family history of ischemic heart disease and other diseases of the circulatory system
CPT/HCPCS: 99285; 36415; 93005; 93017; 93306; 85379; 80061; 80053; 82150; 83690; 83735; 84484; 85025; 85610; 85730; 71046; 78452; G0378 ×2; A9500; J2785

== ENCOUNTER → 2024-08-17 | Outpatient (CLI) | payer OTHER ==
--- NOTE | 2024-08-17 19:49 | CTL ---
EXAMINATION TYPE: CT Low Dose Lung DATE OF EXAM: 08/17/2024 5:17 PM COMPARISON: Multiple prior CT studies, most recently dated 04/03/2023. CLINICAL INDICATION: Female, 59 years old with history of Z12.2 SCREENING LUNG CA F17.210 CURRENT SMO KER; Lung screening for nicotine dependence of 1.5ppd x35 years, current smoker., history of tobacco use. TECHNIQUE: Multiple axial non-contrast scans were obtained from approximately the lung apices through the upper abdomen. Coronal and sagittal reformatted images were obtained. Low dose technique was uti lized. MIP were created on a separate workstation and submitted for review. CT DLP: 97.2 mGycm, Automated exposure control for dose reduction was used. CT Contrast: FINDINGS: Lack of intravenous contrast and low dose technique limits the evaluation of the vascular and soft ti ssue structures. Heart size is within normal limits. No pericardial effusion. Calcified at the described disease of th e thoracic aorta without aneurysmal dilatation. Main pulmonary artery is normal in caliber. Severe co ronary artery calcification. No pathologic mediastinal lymphadenopathy. Limited evaluation for hilar lymphadenopathy given lack of IV contrast. Imaging through the lungs demonstrate emphysema, most pronounced in the apices. There is right lung a pex subpleural reticular nodular scarring again visualized. Scattered subcentimeter pulmonary microno dules, not significantly changed from prior study. No new suspicious or enlarging pulmonary nodule or pulmonary mass. No acute focal consolidation. No pleural effusion or pneumothorax. Mosaic attenuatio n pattern. Partially visualized upper abdomen demonstrate no acute pathology. Thoracic spine degenerative change s. IMPRESSION: No new suspicious or enlarging pulmonary nodule. CT LUNG RAD AND CT CHEST RECOMMENDATION: Lung-Rad 2 Benign Appearance or Behavior: Continue annual sc reening with LDCT in 12 months. S Modifier (other clinically significant findings): Severe coronary artery calcifications. Recommend smoking cessation (if current smoker), or continuation of smoking cessation (if prior smoke r). Annual screening for lung cancer with low-dose computed tomography is recommended in adults ages 55 to 77 years who have a 30 pack-year smoking history and currently smoke or have quit within the pa st 15 years. Screening should be discontinued once a person has not smoked for 15 years or develops a health problem that substantially limits life expectancy or the ability or willingness to have curat monik lung surgery. Lung rads 2021 [email or web address] [facility], Workstation: [employer], 08/17/2024 7:46 PM
== END | disposition home or self-care (01) ==
LOC: RADCTMAIN 16:30
PROVIDERS: ATTEND Family Medicine
DX: Z12.2 Encounter for screening for malignant neoplasm of respiratory organs (principal); F17.210 Nicotine dependence, cigarettes, uncomplicated; J43.9 Emphysema, unspecified
CPT/HCPCS: 71271